=== PATIENT | male | born 1995 | race Caucasian/White ===

== ENCOUNTER 2019-06-01 19:50 | Emergency (ER) | payer OTHER ==
[2019-06-01 20:01] VITALS: RESP 18
--- NOTE | 2019-06-01 20:40 | XR ---
EXAMINATION TYPE: XR ankle complete LT DATE OF EXAM: 06/01/2019 COMPARISON: NONE HISTORY: Pain TECHNIQUE: 3 views of the left ankle are submitted for evaluation. FINDINGS: There is no evidence for fracture or dislocation. Ankle mortise is intact. Soft tissues are within normal limits. IMPRESSION: 1. No evidence for acute fracture.
--- NOTE | 2019-06-01 21:13 | ED ---
General Adult HPI - General Chief complaint: Extremity Injury, Lower Stated complaint: ankle injury Time Seen by Provider: 06/01/19 20:12 Source: patient, RN notes reviewed, old records reviewed Mode of arrival: ambulatory Limitations: no limitations - History of Present Illness Initial comments: 23-year-old male patient no pertinent past medical history presents ED chief complaint of left ankle pain. Patient reports that at his job he is on his feet for 10 hours today running back and forth for multiple days now. Patient reports that his Coumadin effect. The his left ankle becoming inflamed and swollen. Denies any inversion or eversion injury or any direct trauma. Patient reports that he has a mild amount of pain both at the medial and lateral aspect of his malleolus. Denies any foot pain. Denies any other complaints. Systemic: Pt denies fatigue, fever/chills, rash. Pt denies weakness, night sweats, weight loss. Neuro: Pt denies headache, visual disturbances, syncope or pre-syncope. HEENT: Pt denies ocular discharge or irritation, otalgia, rhinorrhea, pharyngitis or notable lymphadenopathy. Cardiopulmonary: Pt denies chest pain, SOB, heart palpitations, dyspnea on exertion. Abdominal/GI: Pt denies abdominal pain, n/v/d. : Pt denies dysuria, burning w/ urination, frequency/urgency. Denies new onset urinary or bowel incontinence. MSK: Pt denies loss of strength or function in extremities. Neuro: Pt denies new onset weakness, paresthesias. - Related Data Allergies Allergy/AdvReac Type Severity Reaction Status Date / Time No Known Allergies Allergy Verified 06/01/19 20:01 Review of Systems ROS Statement: Those systems with pertinent positive or pertinent negative responses have been documented in the HPI. ROS Other: All systems not noted in ROS Statement are negative. Past Medical History Past Medical History: No Reported History History of Any Multi-Drug Resistant Organisms: None Reported Past Surgical History: No Surgical Hx Reported Past Psychological History: ADD/ADHD, Depression Smoking Status: Current every day smoker Past Alcohol Use History: None Reported Past Drug Use History: None Reported General Exam - General Exam Comments Initial Comments: Constitutional: NAD, AOX3, Pt has pleasant affect. HEENT: NC/AT, trachea midline, neck supple, no lymphadenopathy. Posterior pharynx non erythematous, without exudates. External ears appear normal, without discharge. Mucous membranes moist. Eyes PERRLA, EOM intact. There is no scleral icterus. No pallor noted. Cardiopulmonary: RRR, no murmurs, rubs or gallops, no JVD noted. Lungs CTAB in anterior and posterior christopher. No peripheral edema. Abdominal exam: Abdomen soft and non-distended. Abdomen non-tender to palpation in all 4 quadrants. Bowel sounds active in LLQ. No hepatosplenomegaly. No ecchymosis Neuro: CN II-XII grossly intact. No nuchal rigidity. No raccon eyes, no bruce sign, no hemotympanum. No cervical spinal tenderness. MSK: Mild amount of swelling noted to medial and lateral aspect of malleolus. Proximal tibia/fibula tenderness. Distal pulses intact and equal. No skin changes. No posterior calf tenderness bilaterally, homans sign negative bilaterally. Posterior tibialis and radial pulse +2 bilaterally. Sensation intact in upper and lower extremities. Full active ROM in upper and lower extremities, 5/5 stregnth. Limitations: no limitations Course Vital Signs 06/01/19 19:57 Temperature 99.3 F Pulse Rate 98 Respiratory 18 Rate Blood Pressure 125/74 O2 Sat by Pulse 98 Oximetry Medical Decision Making - Medical Decision Making 23-year-old male patient presents to ED chief complaint left ankle injury. Patient reports that it is swollen and painful. He reports this is from running back and forth at his job many hours and his feet. Denies any acute injury. Patient vital signs are stable, afebrile. Physical exam displayed: Mild amount of swelling noted to medial and lateral aspect of malleolus. Proximal tibia/fibula tenderness. Distal pulses intact and equal. No skin changes. Plain film was negative. Patient discharged with outpatient primary care follow-up and given orthopedic consult symptoms persist. Case discussed with Dr. Mercado. Disposition Clinical Impression: Ankle sprain Disposition: HOME SELF-CARE Condition: Stable Instructions (If sedation given, give patient instructions): Ankle Sprain (ED) Additional Instructions: Follow up with primary care provider, follow up with orthopedic consult if symptoms persist. Return to ER if condition worsens in anyway. Is patient prescribed a controlled substance at d/c from ED?: No Referrals: None,Stated [Primary Care Provider] - 1-2 days Lloyd Aguilar MD [STAFF PHYSICIAN] - 1-2 days
--- NOTE | 2019-06-01 21:14 | ED ---
Medical Decision Making - Medical Decision Making 23-year-old male patient no pertinent past medical history presents ED chief complaint of left ankle pain. Patient reports that at his job he is on his feet for 10 hours today running back and forth for multiple days now. Patient reports that this cumulative effect. The his left ankle becoming inflamed and swollen. Denies any inversion or eversion injury or any direct trauma. Patient reports that he has a mild amount of pain both at the medial and lateral aspect of his malleolus. Denies any foot pain. Denies any other complaints. Physical exam: Medial and lateral aspect of left ankle very mildly tender to palpation. Disposition Clinical Impression: Ankle sprain Disposition: HOME SELF-CARE Condition: Stable Instructions (If sedation given, give patient instructions): Ankle Sprain (ED) Additional Instructions: Follow up with primary care provider, follow up with orthopedic consult if symptoms persist. Return to ER if condition worsens in anyway. Is patient prescribed a controlled substance at d/c from ED?: No Referrals: None,Stated [Primary Care Provider] - 1-2 days Lloyd Aguilar MD [STAFF PHYSICIAN] - 1-2 days
[2019-06-01 21:26] VITALS: BP 143/73; PULSE 86; TEMP 99
== END 2019-06-01 21:28 | disposition home or self-care (01) ==
LOC: EC 19:50
DX: S93.402A Sprain of unspecified ligament of left ankle, initial encounter (principal); F17.200 Nicotine dependence, unspecified, uncomplicated; X58.XXXA Exposure to other specified factors, initial encounter; Y93.02 Activity, running
CPT/HCPCS: 99284

== ENCOUNTER 2019-09-16 18:23 | Emergency (ER) | payer OTHER ==
[2019-09-16 18:33] VITALS: BP 113/89; PULSE 76; RESP 18; TEMP 99.1
[2019-09-16] MEDS ORDERED: ONDANSETRON ODT 4 MG TAB PO STA (18:48)
[2019-09-16] MEDS ORDERED: DIPHENOX-ATROP STARTER PACK 8 TAB BTL PO STA (18:49)
[2019-09-16] MEDS ORDERED: ONDANSETRON 4 MG ODT STARTER PACK 2 TAB BTL PO STA (18:49)
--- NOTE | 2019-09-16 18:57 | ED ---
General Adult HPI - General Chief complaint: Nausea/Vomiting/Diarrhea Stated complaint: vomiting/diarrhea Time Seen by Provider: 09/16/19 18:25 Source: patient, RN notes reviewed, old records reviewed Mode of arrival: ambulatory Limitations: no limitations - History of Present Illness Initial comments: This is a 24-year-old male who presents emergency Department states that at 4 AM he started vomiting and he vomited till noon today at which point time he no longer felt nauseated so he had vogt and eggs and toast. Patient denies any vomiting since. But still is nauseous. Patient also states since early this morning he's been having diarrhea and the diarrhea continues. Patient denies any abdominal pain. Patient denies any fever chills per patient and he coughed patient shortness of breath or difficulty breathing. Patient denies any dysuria hematuria urinary frequency per patient denies any back pain. Patient states he was unable to work tonight like a work note as well. - Related Data Allergies Allergy/AdvReac Type Severity Reaction Status Date / Time No Known Allergies Allergy Verified 09/16/19 18:34 Review of Systems ROS Statement: Those systems with pertinent positive or pertinent negative responses have been documented in the HPI. ROS Other: All systems not noted in ROS Statement are negative. Past Medical History Past Medical History: No Reported History History of Any Multi-Drug Resistant Organisms: None Reported Past Surgical History: Orthopedic Surgery Additional Past Surgical History / Comment(s): right knee, Past Psychological History: ADD/ADHD, Depression Smoking Status: Current every day smoker Past Alcohol Use History: None Reported Past Drug Use History: None Reported General Exam - General Exam Comments Initial Comments: GENERAL: Patient is well-developed and well-nourished. Patient is nontoxic and well- hydrated and is in mild distress. ENT: Neck is soft and supple. No significant lymphadenopathy is noted. Oropharynx is clear. Moist mucous membranes. Neck has full range of motion without eliciting any pain. EYES: The sclera were anicteric and conjunctiva were pink and moist. Extraocular m ovements were intact and pupils were equal round and reactive to light. Eyelids were unremarkable. PULMONARY: Unlabored respirations. Good breath sounds bilaterally. No audible rales rhonchi or wheezing was noted. CARDIOVASCULAR: There is a regular rate and rhythm without any murmurs gallops or rubs. ABDOMEN: Soft and nontender with normal bowel sounds. I was unable to get any air tenderness in the abdomen. SKIN: Skin is clear with no lesions or rashes and otherwise unremarkable. NEUROLOGIC: Patient is alert and oriented x3. Cranial nerves II through XII are grossly intact. Motor and sensory are also intact. Normal speech, volume and content. Symmetrical smile. MUSCULOSKELETAL: Normal extremities with adequate strength and full range of motion. No lower extremity swelling or edema. No calf tenderness. LYMPHATICS: No significant lymphadenopathy is noted PSYCHIATRIC: Normal psychiatric evaluation. Limitations: no limitations Course Vital Signs 09/16/19 18:25 Temperature 99.1 F Pulse Rate 76 Respiratory 18 Rate Blood Pressure 113/89 O2 Sat by Pulse 98 Oximetry Medical Decision Making - Medical Decision Making Patient was given Zofran and Lomotil emergency department. Patient had no tenderness and no other complaints. And all his only complaint currently is that he still has diarrhea. Patient has no pain anywhere. Disposition Clinical Impression: Gastroenteritis Disposition: HOME SELF-CARE Condition: Good Instructions (If sedation given, give patient instructions): Gastroenteritis (ED) Additional Instructions: Patient should take Zofran and Lomotil as prescribed. Patient should start with clear liquids and advance fluids slowly. Is patient prescribed a controlled substance at d/c from ED?: No Referrals: None,Stated [Primary Care Provider] - 1-2 days Time of Disposition: 18:56
[2019-09-16 19:08] LABS: Amorphous Sediment,Urine Many /hpf; Appearance,Urine Turbid (Clear); Bilirubin,Urine Negative (Negative); Blood,Urine Negative (Negative); Color,Urine Yellow; Glucose,Urine (UA) Negative (Negative); Ketones,Urine 2+ (Negative); Leukocyte Esterase,Urine Negative (Negative); Mucus,Urine Many /hpf; Nitrite,Urine Negative (Negative); PH, Urine 5.5 (5.0-8.0); Protein,Urine 1+ (Negative); Specific Gravity,Urine 1.044 (1.001-1.035); WBC,Urine 3 /hpf (0-5)
== END 2019-09-16 19:27 | disposition home or self-care (01) ==
LOC: EC 18:23
DX: K52.9 Noninfective gastroenteritis and colitis, unspecified (principal); F17.200 Nicotine dependence, unspecified, uncomplicated
CPT/HCPCS: 81001; 99284; S0119

== ENCOUNTER 2020-03-20 15:51 | Emergency (ER) | payer BC, OTHER ==
[2020-03-20 16:39] VITALS: BP 122/79; PULSE 72; RESP 18; TEMP 99.1
--- NOTE | 2020-03-20 17:55 | CT ---
EXAMINATION TYPE: CT brain jocelin wo con DATE OF EXAM: 03/20/2020 COMPARISON: None HISTORY: Head injury after syncopal episode CT DLP: 1238.7 mGycm Automated exposure control for dose reduction was used. Ventricles and sulci appear normal. There is no mass effect nor midline shift. There is no sign of in tracranial hemorrhage. The calvarium is intact. Cervical vertebra have normal alignment. Posterior elements are intact. Facet joints appear normal. T he skull base is intact. Prevertebral soft tissues appear normal. IMPRESSION: Normal CT scan of the cervical spine. Normal CT scan of the brain. Mild ethmoid sinusitis noted.
--- NOTE | 2020-03-20 17:57 | CT ---
EXAMINATION TYPE: CT facial bones wo con DATE OF EXAM: 03/20/2020 COMPARISON: None HISTORY: Head injury after syncopal episode CT DLP: 1238.7 mGycm Automated exposure control for dose reduction was used. Images were obtained from the bottom of the mandible to the top of the frontal sinuses without contra st. Mandibular ring is intact. Temporomandibular joints appear normal. Zygomatic arches appear normal. Na ismael bone is intact. The maxilla is intact. There is no evidence of a blowout fracture. There is no re tro-orbital mass. The orbital margins are intact. There is mild mucosal thickening in the ethmoid sin uses. Frontal sinuses appear normal. I see no bony destructive process. The globes are symmetric. IMPRESSION: Negative CT scan of the facial bones. No fracture. Mild ethmoid sinusitis.
--- NOTE | 2020-03-20 19:14 | ED ---
General Adult HPI - General Chief complaint: Fall Stated complaint: facial injury/dizziness Time Seen by Provider: 03/20/20 16:57 Source: patient, RN notes reviewed, old records reviewed Mode of arrival: ambulatory Limitations: no limitations - History of Present Illness Initial comments: 24-year-old male patient presents ED for evaluation of fall. Patient reports that he was walking tripped forward hitting his face on the wall. Patient reports he is having some left facial pain. Reports he might have had a brief consciousness. [place] a little dizzy afterwards. Denies any vomiting reportedly had a little bit of nausea. Denies any other acute complaints. Systemic: Pt denies fatigue, fever/chills, rash. Pt denies weakness, night swe ats, weight loss. Neuro: Pt denies headache, visual disturbances, syncope or pre-syncope. HEENT: Pt denies ocular discharge or irritation, otalgia, rhinorrhea, pharyngitis or notable lymphadenopathy. Cardiopulmonary: Pt denies chest pain, SOB, heart palpitations, dyspnea on exertion. Abdominal/GI: Pt denies abdominal pain, n/v/d. : Pt denies dysuria, burning w/ urination, frequency/urgency. Denies new onset urinary or bowel incontinence. MSK: Pt denies myalgia, loss of strength or function in extremities. Neuro: Pt denies new onset weakness, paresthesias. - Related Data Allergies Allergy/AdvReac Type Severity Reaction Status Date / Time No Known Allergies Allergy Verified 03/20/20 16:39 Review of Systems ROS Statement: Those systems with pertinent positive or pertinent negative responses have been documented in the HPI. ROS Other: All systems not noted in ROS Statement are negative. Past Medical History Past Medical History: No Reported History History of Any Multi-Drug Resistant Organisms: None Reported Past Surgical History: Orthopedic Surgery Additional Past Surgical History / Comment(s): right knee, Past Psychological History: ADD/ADHD, Depression Smoking Status: Current every day smoker Past Alcohol Use History: None Reported Past Drug Use History: None Reported General Exam - General Exam Comments Initial Comments: Constitutional: NAD, AOX3, Pt has pleasant affect. HEENT: NC/AT, trachea midline, neck supple, no lymphadenopathy. External ears appear normal, without discharge. Mucous membranes moist. Eyes PERRLA, EOM intact. There is no scleral icterus. No pallor noted. Cardiopulmonary: RRR, no murmurs, rubs or gallops, no JVD noted. Lungs CTAB in anterior and posterior christopher. No peripheral edema. Abdominal exam: Abdomen soft and non-distended. Abdomen non-tender to palpation in all 4 quadrants. Bowel sounds active in LLQ. No hepatosplenomegaly. No ecchymosis Neuro: CN II-XII intact. No nuchal rigidity. No raccon eyes, no bruce sign, no hemotympanum. No cervical spinal tenderness. MSK: No posterior calf tenderness bilaterally, homans sign negative bilaterally. Posterior tibialis and radial pulse +2 bilaterally. Sensation intact in upper and lower extremities. Full active ROM in upper and lower extremities, 5/5 stregnth. Limitations: no limitations Course Vital Signs 03/20/20 16:34 Temperature 99.1 F Pulse Rate 72 Respiratory 18 Rate Blood Pressure 122/79 O2 Sat by Pulse 99 Oximetry Medical Decision Making - Medical Decision Making 24-year-old male patient presents ED for evaluation of fall. Patient reports that he was walking tripped forward hitting his face on the wall. Patient reports he is having some left facial pain. Reports he might have had a brief consciousness. The dizzy afterwards. Denies any vomiting reportedly had a little bit of nausea. Denies any other acute complaints. Patient vital signs are stable, afebrile. Physical exam did not display acute pathology. CT brain and C-spine displayed mild ethmoid sinusitis. CT facial bones without contrast did not display any fracture. Patient is denying any symptoms of sinusitis. His feeling at baseline. Ambulatory without difficulty. Patient will be discharged outpatient PCP follow-up, return precautions, concussion clinic. Case discussed with Dr. Wu. Disposition Clinical Impression: Fall, Concussion Disposition: HOME SELF-CARE Condition: Stable Instructions (If sedation given, give patient instructions): Fall Prevention (ED), Concussion (ED) Additional Instructions: follow-up with primary care provider tomorrow. Follow up with concussion clinic. Return to ER if any worsening symptoms. [facility] Concussion clinic: Connect with a Concussion Specialist Request an appointment online or call us at . Is patient prescribed a controlled substance at d/c from ED?: No Referrals: None,Stated [Primary Care Provider] - 1-2 days Carolina Echevarria MD [REFERRING] - 1-2 days
== END 2020-03-20 19:28 | disposition home or self-care (01) ==
LOC: EC 15:51
DX: S06.0X9A Concussion with loss of consciousness of unspecified duration, initial encounter (principal); F17.200 Nicotine dependence, unspecified, uncomplicated; W01.198A Fall on same level from slipping, tripping and stumbling with subsequent striking against other object, initial encounter; Y93.01 Activity, walking, marching and hiking
CPT/HCPCS: 70450; 70486; 72125; 99284

== ENCOUNTER 2020-05-28 17:11 | Emergency (ER) | payer BC, OTHER ==
[2020-05-28] MEDS ORDERED: KETOROLAC 15 MG/ML 1 ML VIAL IM STA (17:40)
--- NOTE | 2020-05-28 17:43 | ED ---
General Adult HPI - General Chief complaint: Chest Pain Stated complaint: Chest pain Time Seen by Provider: 05/28/20 17:27 Source: patient, RN notes reviewed Mode of arrival: ambulatory Limitations: no limitations - History of Present Illness Initial comments: Patient is a pleasant 24-year-old male presenting to the emergency Department with chest discomfort. Onset of symptoms was around 3 hours ago while throwing carpet. Patient had his arms up over his head. Patient states carpet does not weigh hole at, only 5 or 10 pounds and patient has done this motion previously. Patient has discomfort the lower sternum. Discomfort is hard to describe. Patient is unclear how severe discomfort is. Discomfort does increase with deep breaths. Otherwise no dyspnea. No nausea or diaphoresis. Patient states he does have similar symptoms previously his entire lifebut usually does not last this long. No leg pain or leg swelling. Patient states fingertips on both his hands were tingly - Related Data Allergies Allergy/AdvReac Type Severity Reaction Status Date / Time No Known Allergies Allergy Verified 05/28/20 17:21 Review of Systems ROS Statement: Those systems with pertinent positive or pertinent negative responses have been documented in the HPI. ROS Other: All systems not noted in ROS Statement are negative. Constitutional: Denies: fever Eyes: Denies: eye pain ENT: Denies: ear pain Respiratory: Denies: cough, dyspnea Cardiovascular: Reports: as per HPI, chest pain Endocrine: Denies: fatigue Gastrointestinal: Denies: abdominal pain Genitourinary: Denies: dysuria Musculoskeletal: Denies: back pain Skin: Denies: rash Neurological: Denies: weakness Past Medical History Past Medical History: No Reported History Additional Past Medical History / Comment(s): irregular heart beat but states he never saw dr he just knows his heart rate was fast. History of Any Multi-Drug Resistant Organisms: None Reported Past Surgical History: Orthopedic Surgery Additional Past Surgical History / Comment(s): right knee, Past Psychological History: ADD/ADHD, Depression Smoking Status: Current every day smoker Past Alcohol Use History: None Reported Past Drug Use History: None Reported General Exam Limitations: no limitations General appearance: alert, in no apparent distress Head exam: Present: normocephalic Eye exam: Present: normal appearance Neck exam: Present: normal inspection Respiratory exam: Present: normal lung sounds bilaterally, chest wall tenderness (patient does have mild tenderness lower mid sternum) Cardiovascular Exam: Present: regular rate, normal rhythm Expanded Peripheral pulses: 2+: Radial (R), Radial (L), Dorsalis Pedis (R), Dorsalis Pedis (L) GI/Abdominal exam: Present: soft. Absent: tenderness Extremities exam: Present: normal inspection. Absent: pedal edema, calf tenderness Neurological exam: Present: alert Psychiatric exam: Present: normal affect, normal mood Skin exam: Present: normal color Course Vital Signs 05/28/20 05/28/20 17:17 18:03 Pulse Rate 80 Pulse Rate [ 65 Line Pilot ] Respiratory 20 Rate Blood Pressure 120/77 O2 Sat by Pulse 98 Oximetry EKG Findings - EKG Comments: EKG Findings:: normal sinus rhythm 69. UT 16. QRS 84. QT 374. QTC 400. Normal axis. Normal QRS. No acute ST change. Medical Decision Making - Medical Decision Making patient perc negative. Patient reevaluated and symptom-free. Patient updated on results and need for follow-up. - Radiology Data Radiology results: image reviewed (chest x-ray shows no acute) Disposition Clinical Impression: Chest pain Disposition: HOME SELF-CARE Condition: Stable Instructions (If sedation given, give patient instructions): Chest Wall Pain (ED) Additional Instructions: please follow-up with primary care physician in the next day or 2 for recheck, number provided. Return for changing or worsening symptoms, difficulty breathing, or any other concerns. Is patient prescribed a controlled substance at d/c from ED?: No Referrals: Erick Gutierrez [STAFF PHYSICIAN] - 1-2 days Sai Bernard MD [REFERRING] - 1-2 days Time of Disposition: 18:49
--- NOTE | 2020-05-28 18:30 | XR ---
EXAMINATION TYPE: XR chest 2V DATE OF EXAM: 05/28/2020 COMPARISON: NONE HISTORY: Chest pain TECHNIQUE: FINDINGS: Heart and mediastinum are normal. Lungs are clear. Diaphragm is normal. Bony thorax appears normal. IMPRESSION: Normal chest.
[2020-05-28 18:58] VITALS: BP 118/77; PULSE 67; RESP 16
== END 2020-05-28 18:58 | disposition home or self-care (01) ==
LOC: EC 17:11
DX: R07.89 Other chest pain (principal); F17.200 Nicotine dependence, unspecified, uncomplicated; X50.0XXA Overexertion from strenuous movement or load, initial encounter; Y92.69 Other specified industrial and construction area as the place of occurrence of the external cause; Y99.0 Civilian activity done for income or pay
CPT/HCPCS: 93005; 71046; 99285; 96372; J1885

== ENCOUNTER 2020-11-28 08:12 | Emergency (ER) | payer BC, OTHER ==
[2020-11-28 08:17] VITALS: BP 132/93; PULSE 91; RESP 18; TEMP 98
[2020-11-28] MEDS ORDERED: BACITRACIN OINT 1 EACH PACKET TOPICAL STA (08:44)
[2020-11-28] MEDS ORDERED: CEPHALEXIN 500MG STARTER PACK 4 CAP BTL PO STA (08:44)
--- NOTE | 2020-11-28 09:10 | ED ---
General Adult HPI - General Chief complaint: Wound/Laceration Stated complaint: possible arm infection Time Seen by Provider: 11/28/20 08:19 Source: patient Mode of arrival: ambulatory Limitations: no limitations - History of Present Illness Initial comments: 25-year-old female without any significant past medical history presents for possible infection. Patient states he scraped his left arm on a light switch last week. States this rate started to look infected. States it is spreading red. States it was draining green fluid. Patient denies fevers.Patient has no other complaints at this time including shortness of breath, chest pain, abdominal pain, nausea or vomiting, headache, or visual changes. - Related Data Previous Rx's Medication Instructions Recorded Bacitracin/Polymyx Oint 1 applic TOPICAL TID #5 gm 11/28/20 [Polysporin] Cephalexin [Keflex] 500 mg PO Q6HR 7 Days #28 cap 11/28/20 Allergies Allergy/AdvReac Type Severity Reaction Status Date / Time No Known Allergies Allergy Verified 11/28/20 08:50 Review of Systems ROS Statement: Those systems with pertinent positive or pertinent negative responses have been documented in the HPI. ROS Other: All systems not noted in ROS Statement are negative. Past Medical History Past Medical History: No Reported History Additional Past Medical History / Comment(s): irregular heart beat but states he never saw dr he just knows his heart rate was fast. History of Any Multi-Drug Resistant Organisms: None Reported Past Surgical History: Orthopedic Surgery Additional Past Surgical History / Comment(s): right knee, Past Psychological History: ADD/ADHD, Depression Smoking Status: Current every day smoker Past Alcohol Use History: None Reported Past Drug Use History: None Reported General Exam Limitations: no limitations General appearance: alert, in no apparent distress Head exam: Present: atraumatic, normocephalic, normal inspection Eye exam: Present: normal appearance, PERRL, EOMI. Absent: scleral icterus, conjunctival injection, periorbital swelling ENT exam: Present: normal exam Neck exam: Present: normal inspection Respiratory exam: Present: normal lung sounds bilaterally. Absent: respiratory distress, wheezes Cardiovascular Exam: Present: regular rate, normal rhythm, normal heart sounds Extremities exam: Present: other (Minor abrasion noted to the left upper arm. There is minimal surrounding erythema.) Course Vital Signs 11/28/20 08:14 Temperature 98 F Pulse Rate 91 Respiratory 18 Rate Blood Pressure 132/93 O2 Sat by Pulse 97 Oximetry Medical Decision Making - Medical Decision Making Vitals are stable. Patient is afebrile. There is small abrasion noted to the left upper arm. Minimal erythema could be an early cellulitis. Patient will be treated accordingly. He'll follow up with his doctor. Discussed returning for any worsening symptoms. Disposition Clinical Impression: Cellulitis Disposition: HOME SELF-CARE Condition: Good Instructions (If sedation given, give patient instructions): Cellulitis (ED) Additional Instructions: Please use medications as directed. Follow-up with your doctor. Return to the emergency room for any worsening symptoms. Prescriptions: Cephalexin [Keflex] 500 mg PO Q6HR 7 Days #28 cap Bacitracin/Polymyx Oint [Polysporin] 1 applic TOPICAL TID #5 gm Is patient prescribed a controlled substance at d/c from ED?: No Referrals: Jeronimo Fry MD [STAFF PHYSICIAN] - 1-2 days Time of Disposition: 09:08
== END 2020-11-28 09:25 | disposition home or self-care (01) ==
LOC: EC 08:12
DX: L03.114 Cellulitis of left upper limb (principal); F17.200 Nicotine dependence, unspecified, uncomplicated; F32.9 Major depressive disorder, single episode, unspecified
CPT/HCPCS: 96372; 99283

== ENCOUNTER 2021-04-03 10:10 | Emergency (ER) | payer OTHER ==
[2021-04-03 10:30] VITALS: BP 136/78; PULSE 87; RESP 18; TEMP 98.3
--- NOTE | 2021-04-03 12:03 | ED ---
Lower Extremity Injury HPI - General Chief Complaint: Extremity Injury, Lower Stated Complaint: Injury-Left Foot Time Seen by Provider: 04/03/21 10:47 Source: patient, RN notes reviewed Mode of arrival: wheelchair Limitations: no limitations - History of Present Illness Initial Comments: This a 25-year-old male presents emergency Department with chief complaint of left ankle pain, foot pain. Patient states been issues in which she had an old injury injury. Patient states he rolled his ankle. Patient complains of left lateral ankle pain, left foot first digit numbness. He states it comes and goes worse with standing all day using have some circulation issues but has not seen her primary care physician or orthopedic physician patient denies any history of diabetes no other complaints. - Related Data Previous Rx's Medication Instructions Recorded Bacitracin/Polymyx Oint 1 applic TOPICAL TID #5 gm 11/28/20 [Polysporin Oint] Cephalexin [Keflex] 500 mg PO Q6HR 7 Days #28 cap 11/28/20 Allergies Allergy/AdvReac Type Severity Reaction Status Date / Time No Known Allergies Allergy Verified 04/03/21 10:30 Review of Systems ROS Statement: Those systems with pertinent positive or pertinent negative responses have been documented in the HPI. ROS Other: All systems not noted in ROS Statement are negative. Past Medical History Past Medical History: No Reported History Additional Past Medical History / Comment(s): irregular heart beat but states he never saw dr he just knows his heart rate was fast. History of Any Multi-Drug Resistant Organisms: None Reported Past Surgical History: Orthopedic Surgery Additional Past Surgical History / Comment(s): right knee, Past Psychological History: ADD/ADHD, Depression Smoking Status: Current every day smoker Past Alcohol Use History: None Reported Past Drug Use History: None Reported General Exam Limitations: no limitations General appearance: alert, in no apparent distress Head exam: Present: atraumatic, normocephalic, normal inspection Respiratory exam: Present: normal lung sounds bilaterally. Absent: respiratory distress, wheezes, rales, rhonchi, stridor Cardiovascular Exam: Present: regular rate, normal rhythm, normal heart sounds. Absent: systolic murmur, diastolic murmur, rubs, gallop, clicks Extremities exam: Present: other (Left foot there is tenderness to lateral proximal foot, lateral malleolus region, neurovascular intact with equal pedal pulses. Normal color and warmth) Course Vital Signs 04/03/21 10:25 Temperature 98.3 F Pulse Rate 87 Respiratory 18 Rate Blood Pressure 136/78 O2 Sat by Pulse 100 Oximetry Medical Decision Making - Medical Decision Making X-rays negative for acute fracture. Patient will be discharged in stable condition patient is a left ankle sprain complaints of paresthesias of his told to follow-up with orthopedics return parameters were discussed. Disposition Clinical Impression: Left ankle sprain, Paresthesia of foot Disposition: HOME SELF-CARE Condition: Stable Instructions (If sedation given, give patient instructions): Ankle Sprain (ED) Additional Instructions: Please return to the Emergency Department if symptoms worsen or any other concerns. Is patient prescribed a controlled substance at d/c from ED?: No Referrals: None,Stated [Primary Care Provider] - 1-2 days Luis A Omer MD [Medical Doctor] - 1-2 days Time of Disposition: 12:37
--- NOTE | 2021-04-03 12:31 | XR ---
EXAMINATION TYPE: XR foot complete LT DATE OF EXAM: 04/03/2021 CLINICAL HISTORY: pain TECHNIQUE: Frontal, lateral and oblique images of the left foot are obtained. COMPARISON: None. FINDINGS: There is no acute fracture/dislocation evident. The joint spaces appear within normal nur its. The overlying soft tissue appears unremarkable. IMPRESSION: There is no acute fracture or dislocation. ICD 10 NO FRACTURE, INITIAL EVALUATION
--- NOTE | 2021-04-03 12:31 | XR ---
EXAMINATION TYPE: XR ankle complete LT DATE OF EXAM: 04/03/2021 COMPARISON: NONE HISTORY: Pain TECHNIQUE: 3 views of the left ankle are submitted for evaluation. FINDINGS: There is no evidence for fracture or dislocation. Ankle mortise is intact. Soft tissues are within normal limits. IMPRESSION: 1. No evidence for acute fracture.
== END 2021-04-03 13:37 | disposition home or self-care (01) ==
LOC: EC 10:10
DX: S93.402A Sprain of unspecified ligament of left ankle, initial encounter (principal); F32.9 Major depressive disorder, single episode, unspecified; F90.9 Attention-deficit hyperactivity disorder, unspecified type; F17.200 Nicotine dependence, unspecified, uncomplicated; X50.1XXA Overexertion from prolonged static or awkward postures, initial encounter
CPT/HCPCS: 99283

== ENCOUNTER → 2021-04-05 | Outpatient (CLI) | payer OTHER ==
--- NOTE | 2021-04-05 19:46 | XR ---
EXAMINATION TYPE: XR lumbar spine 2 or 3V DATE OF EXAM: 04/05/2021 Comparison: None Clinical History: 25-year-old male M54.32 Findings: Vertebral body heights are preserved and alignment is maintained. Disc interspaces are also preserved . There appears to be a right L5 hemisacralization with possible early degenerative change at the ass imilation joint. Impression: 1. 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 Note that this finding can contribute to accelerated degenerative change at the level above, L4-L5. 2. No vertebral compression collapse or malalignment.
== END | disposition home or self-care (01) ==
LOC: RADXRMAIN 12:57
PROVIDERS: ATTEND Family Medicine
DX: M51.36 Other intervertebral disc degeneration, lumbar region (principal)
CPT/HCPCS: 72100

== ENCOUNTER 2021-06-27 15:06 | Emergency (ER) | payer OTHER ==
[2021-06-27 16:34] VITALS: TEMP 98
[2021-06-27] MEDS ORDERED: KETOROLAC 15 MG/ML 1 ML VIAL IM STA (17:30)
--- NOTE | 2021-06-27 17:35 | ED ---
General Adult HPI - General Chief complaint: Back Pain/Injury Stated complaint: Back pain Time Seen by Provider: 06/27/21 17:12 Source: patient Mode of arrival: ambulatory Limitations: no limitations - History of Present Illness Initial comments: 25-year-old male presents to the emergency room for a gentleman of lower back pain for several months. 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 States he has had low back pain for several months from this. States over the weekend his pain started to worsen. He saw his doctor gave him a muscle relaxer muscle is spasming. States it did seem to help with the spasming but he is still having low back pain. States movement seems to worsen the pain and position such as crouching also worsen the pain. Patient states that lifting heavy objects does not help either. Patient denies bladder or bowel changes, saddle anesthesia, weakness of the legs, fevers or chills, or radiating pain down the legs.Patient has no other complaints at this time including shortness of breath, chest pain, abdominal pain, nausea or vomiting, headache, or visual changes. - Related Data Previous Rx's Medication Instructions Recorded Bacitracin/Polymyx Oint 1 applic TOPICAL TID #5 gm 11/28/20 [Polysporin Oint] Cephalexin [Keflex] 500 mg PO Q6HR 7 Days #28 cap 11/28/20 Allergies Allergy/AdvReac Type Severity Reaction Status Date / Time No Known Allergies Allergy Verified 06/27/21 16:30 Review of Systems ROS Statement: Those systems with pertinent positive or pertinent negative responses have been documented in the HPI. ROS Other: All systems not noted in ROS Statement are negative. Past Medical History Past Medical History: No Reported History Additional Past Medical History / Comment(s): irregular heart beat but states he never saw dr he just knows his heart rate was fast. History of Any Multi-Drug Resistant Organisms: None Reported Past Surgical History: Orthopedic Surgery Additional Past Surgical History / Comment(s): right knee scope Past Psychological History: ADD/ADHD, Depression Smoking Status: Vaper Past Alcohol Use History: None Reported Past Drug Use History: None Reported General Exam Limitations: no limitations General appearance: alert, in no apparent distress Head exam: Present: atraumatic Eye exam: Present: normal appearance, PERRL, EOMI. Absent: scleral icterus, conjunctival injection ENT exam: Present: normal exam, mucous membranes moist Neck exam: Present: normal inspection, full ROM. Absent: tenderness Respiratory exam: Present: normal lung sounds bilaterally. Absent: respiratory distress, wheezes Cardiovascular Exam: Present: regular rate, normal rhythm, normal heart sounds GI/Abdominal exam: Present: soft, normal bowel sounds. Absent: distended, tenderness Back exam: Present: vertebral tenderness (Upper lumbar tenderness). Absent: CVA tenderness (R), CVA tenderness (L) Course Vital Signs 06/27/21 16:31 Temperature 98 F Pulse Rate 74 Respiratory 18 Rate Blood Pressure 118/77 O2 Sat by Pulse 100 Oximetry Medical Decision Making - Medical Decision Making Patient has upper lumbar pain. Back pain is not thoracic in nature. Pain is reproducible to palpation and worsens with movement. Musculoskeletal in nature. X-rays obtained. No acute process. No evidence of vertebral height loss. Patient was given Toradol. At this time patient can be discharged home to follow-up with orthopedics. Will return here for any worsening symptoms. Disposition Clinical Impression: Mechanical back pain Disposition: HOME SELF-CARE Condition: Good Instructions (If sedation given, give patient instructions): Acute Low Back Pain (ED) Additional Instructions: Please take Motrin and Tylenol for pain. Take muscle relaxer as directed. Follow-up with your doctor. Return to the emergency room for any worsening symptoms. Is patient prescribed a controlled substance at d/c from ED?: No Referrals: Erick Gutierrez [Primary Care Provider] - 1-2 days Time of Disposition: 18:21
--- NOTE | 2021-06-27 18:09 | XR ---
EXAMINATION TYPE: XR lumbar spine 2 or 3V DATE OF EXAM: 06/27/2021 5:42 PM INDICATION: Patient age:Male; 25 years old; Reason for study: pain; COMPARISON: None TECHNIQUE: The lumbar spine was examined in 2 views. FINDINGS: No evidence of any acute osseous pathology. No evidence of loss of vertebral body height i s seen. There is normal alignment of the lumbar vertebral bodies. IMPRESSION: No acute process.
[2021-06-27 18:45] VITALS: BP 115/77; PULSE 95; RESP 16
== END 2021-06-27 18:44 | disposition home or self-care (01) ==
LOC: EC 15:06
DX: M54.50 Low back pain, unspecified (principal); F17.290 Nicotine dependence, other tobacco product, uncomplicated
CPT/HCPCS: 72100; 99283; 96372; J1885

== ENCOUNTER → 2021-06-28 | Outpatient (CLI) | payer OTHER ==
--- NOTE | 2021-06-29 10:12 | XR ---
EXAMINATION TYPE: XR thoracic spine 4 views complete DATE OF EXAM: 06/28/2021 Comparison: None Clinical History: 25-year-old male M54.6 Thoracic Back Pain Findings: 12 rib bearing thoracic vertebral bodies. All pedicles are visualized. Vertebral body heights are pre served and alignment maintained. Minimal anterior endplate spondylosis lower thoracic spine. Impression: Minimal anterior endplate spondylosis lower thoracic spine. No vertebral compression collapse or jayesh lignment.
== END | disposition home or self-care (01) ==
LOC: RADXRMAIN 16:35
PROVIDERS: ATTEND Family Medicine
DX: M47.814 Spondylosis without myelopathy or radiculopathy, thoracic region (principal)
CPT/HCPCS: 72072

== ENCOUNTER 2021-09-12 02:36 | Emergency (ER) | payer OTHER ==
[2021-09-12 02:45] VITALS: BP 137/85; PULSE 71; RESP 18; TEMP 97.9
[2021-09-12] MEDS ORDERED: DIPHENOX-ATROP STARTER PACK 8 TAB BTL PO STA (03:01)
[2021-09-12] MEDS ORDERED: IBUPROFEN 600 MG STARTER PACK 4 TAB BTL PO STA (03:01)
[2021-09-12] MEDS ORDERED: ONDANSETRON 4 MG ODT STARTER PACK 2 TAB BTL PO STA (03:01)
--- NOTE | 2021-09-12 03:09 | ED ---
Nausea/Vomiting/Diarrhea HPI - General Chief complaint: Nausea/Vomiting/Diarrhea Stated complaint: vomiting diaheah Time Seen by Provider: 09/12/21 02:51 Source: patient, RN notes reviewed, old records reviewed Mode of arrival: ambulatory Limitations: no limitations - History of Present Illness Initial comments: This is a 18-year-old male DF for evaluation patient Dese for evaluation multiple vomiting multiple episodes of diarrhea. No blood. No fevers. Mild up and down abdominal pain cramping. No fevers. Symptoms began after dinner tonight. did not have any similar symptoms. Patient has otherwise no recent travel history or sick contacts MD complaint: nausea, vomiting, diarrhea, abdominal pain -: hour(s) Description of Vomiting: food contents, watery Description of Diarrhea: water, mucous Associated Abdominal Pain: Yes Location: diffuse Radiation: none Severity: mild Severity scale (1-10): 3 Quality: cramping, aching Consistency: constant Improves with: none Worsens with: none Context: possible food poisoning Associated Symptoms: loss of appetite, nausea/vomiting - Related Data Previous Rx's Medication Instructions Recorded Bacitracin/Polymyx Oint 1 applic TOPICAL TID #5 gm 11/28/20 [Polysporin Oint] Cephalexin [Keflex] 500 mg PO Q6HR 7 Days #28 cap 11/28/20 Acetaminophen [Tylenol] 500 mg PO Q4-6H PRN #20 tab 06/27/21 Ibuprofen [Motrin] 600 mg PO Q6HR PRN #20 tab 06/27/21 Lidocaine 5% Patch [Lidoderm 5% 1 patch TOPICAL DAILY PRN 5 Days 06/27/21 Patch] #5 patch Allergies Allergy/AdvReac Type Severity Reaction Status Date / Time No Known Allergies Allergy Verified 09/12/21 02:45 Review of Systems ROS Statement: Those systems with pertinent positive or pertinent negative responses have been documented in the HPI. ROS Other: All systems not noted in ROS Statement are negative. Past Medical History Past Medical History: No Reported History Additional Past Medical History / Comment(s): irregular heart beat but states he never saw dr he just knows his heart rate was fast. History of Any Multi-Drug Resistant Organisms: None Reported Past Surgical History: Orthopedic Surgery Additional Past Surgical History / Comment(s): right knee scope Past Psychological History: ADD/ADHD, Depression Smoking Status: Vaper Past Alcohol Use History: None Reported Past Drug Use History: None Reported General Exam General appearance: alert, in no apparent distress Head exam: Present: atraumatic, normocephalic, normal inspection Eye exam: Present: normal appearance, PERRL, EOMI. Absent: scleral icterus, conjunctival injection, periorbital swelling ENT exam: Present: normal exam, mucous membranes moist Neck exam: Present: normal inspection. Absent: tenderness, meningismus, lymphadenopathy Respiratory exam: Present: normal lung sounds bilaterally. Absent: respiratory distress, wheezes, rales, rhonchi, stridor Cardiovascular Exam: Present: regular rate, normal rhythm, normal heart sounds. Absent: systolic murmur, diastolic murmur, rubs, gallop, clicks GI/Abdominal exam: Present: soft, normal bowel sounds. Absent: distended, tenderness, guarding, rebound, rigid Extremities exam: Present: normal inspection, full ROM, normal capillary refill. Absent: tenderness, pedal edema, joint swelling, calf tenderness Back exam: Present: normal inspection Neurological exam: Present: alert, oriented X3, CN II-XII intact Psychiatric exam: Present: normal affect, normal mood Skin exam: Present: warm, dry, intact, normal color. Absent: rash Course Vital Signs 09/12/21 02:40 Temperature 97.9 F Pulse Rate 71 Respiratory 18 Rate Blood Pressure 137/85 O2 Sat by Pulse 98 Oximetry - Reevaluation(s) Reevaluation #1: 09/12/21 03:08 Medical record is reviewed Reevaluation #2: 09/12/21 03:08 Patient not having any acute active vomiting Reevaluation #3: 09/12/21 03:08 Patient informed of plan and questions are answered Medical Decision Making - Medical Decision Making 26 male to the emergency department. Patient presents today for evaluation of nausea vomiting and diarrhea multiple episodes of the above. Patient given symptomatic therapy can be discharged home Disposition Clinical Impression: Food poisoning, Gastroenteritis Disposition: HOME SELF-CARE Condition: Good Instructions (If sedation given, give patient instructions): Acute Nausea and Vomiting (ED), Acute Diarrhea (ED) Is patient prescribed a controlled substance at d/c from ED?: No Referrals: Erick Gutierrez [Primary Care Provider] - 1-2 days
== END 2021-09-12 03:31 | disposition home or self-care (01) ==
LOC: EC 02:36
DX: K52.9 Noninfective gastroenteritis and colitis, unspecified (principal); A05.9 Bacterial foodborne intoxication, unspecified; F17.290 Nicotine dependence, other tobacco product, uncomplicated
CPT/HCPCS: 99283; S0119

== ENCOUNTER 2021-12-17 21:15 | Emergency (ER) | payer OTHER ==
[2021-12-17 21:29] VITALS: BP 104/60; PULSE 119; RESP 20; TEMP 100.9
[2021-12-17] MEDS ORDERED: IBUPROFEN 800 MG TAB PO STA (21:33)
[2021-12-17] MEDS ORDERED: ACETAMINOPHEN TAB 500 MG TAB PO STA (21:33)
[2021-12-17] MEDS ORDERED: ONDANSETRON 4 MG TAB PO STA (21:33)
--- NOTE | 2021-12-17 21:34 | ED ---
Fever HPI - General Chief Complaint: Nausea/Vomiting/Diarrhea Stated Complaint: Fever/Abd pain/headache Time Seen by Provider: 12/17/21 21:33 Source: patient, RN notes reviewed, old records reviewed Mode of arrival: ambulatory Limitations: no limitations - History of Present Illness Initial Comments: This is a 26-year-old male to the emergency department with multiple complaints fever headache nausea belly pain. Body aches and pains. States both to family members also have similar complaints currently. No significant medical history no travel history no known significant sick contacts. No modifying factors for symptoms MD Complaint: fever, malaise, weakness, other (Headache and generalized aches and pains) -: hour(s) Temperature Source: subjective Context: multiple patients with similar symptoms Associated Symptoms: chills, myalgias, headache, cough, abdominal pain, nausea Treatments Prior to Arrival: none - Related Data Previous Rx's Medication Instructions Recorded Bacitracin/Polymyx Oint 1 applic TOPICAL TID #5 gm 11/28/20 [Polysporin Oint] Cephalexin [Keflex] 500 mg PO Q6HR 7 Days #28 cap 11/28/20 Acetaminophen [Tylenol] 500 mg PO Q4-6H PRN #20 tab 06/27/21 Ibuprofen [Motrin] 600 mg PO Q6HR PRN #20 tab 06/27/21 Lidocaine 5% Patch [Lidoderm 5% 1 patch TOPICAL DAILY PRN 5 Days 06/27/21 Patch] #5 patch Allergies Allergy/AdvReac Type Severity Reaction Status Date / Time No Known Allergies Allergy Verified 12/17/21 21:29 Review of Systems ROS Statement: Those systems with pertinent positive or pertinent negative responses have been documented in the HPI. ROS Other: All systems not noted in ROS Statement are negative. Past Medical History Past Medical History: No Reported History Additional Past Medical History / Comment(s): irregular heart beat but states he never saw dr he just knows his heart rate was fast. History of Any Multi-Drug Resistant Organisms: None Reported Past Surgical History: Orthopedic Surgery Additional Past Surgical History / Comment(s): right knee scope Past Psychological History: ADD/ADHD, Depression Smoking Status: Vaper Past Alcohol Use History: None Reported Past Drug Use History: None Reported General Exam Limitations: no limitations General appearance: alert, in no apparent distress Head exam: Present: atraumatic, normocephalic, normal inspection Eye exam: Present: normal appearance, PERRL, EOMI. Absent: scleral icterus, conjunctival injection, periorbital swelling ENT exam: Present: normal exam, mucous membranes moist Neck exam: Present: normal inspection. Absent: tenderness, meningismus, lymphadenopathy Respiratory exam: Present: normal lung sounds bilaterally. Absent: respiratory distress, wheezes, rales, rhonchi, stridor Cardiovascular Exam: Present: regular rate, normal rhythm, normal heart sounds. Absent: systolic murmur, diastolic murmur, rubs, gallop, clicks GI/Abdominal exam: Present: soft, normal bowel sounds. Absent: distended, tenderness, guarding, rebound, rigid Extremities exam: Present: normal inspection, full ROM, normal capillary refill. Absent: tenderness, pedal edema, joint swelling, calf tenderness Back exam: Present: normal inspection Neurological exam: Present: alert, oriented X3, CN II-XII intact Psychiatric exam: Present: normal affect, normal mood Skin exam: Present: warm, dry, intact, normal color. Absent: rash Course Vital Signs 12/17/21 21:25 Temperature 100.9 F H Pulse Rate 119 H Respiratory 20 Rate Blood Pressure 104/60 O2 Sat by Pulse 97 Oximetry - Reevaluation(s) Reevaluation #1: 12/17/21 22:39 Medical record is reviewed Reevaluation #2: 12/17/21 23:39 Patient very irritable here in the emergency department, informed of positive coronavirus diagnosis Reevaluation #3: 12/17/21 23:39 Patient's fevers improved no active nausea vomiting Medical Decision Making - Medical Decision Making 26 male to the ER today for evaluation. Patient presesnts today for evaluation of fever nausea abdominal pain positive for coronavirus patient can be discharged home - Lab Data Lab Results 12/17/21 12/17/21 Range/Units 22:22 22:22 Coronavirus (PCR) Detected A (Not Detectd) Influenza Type A RNA Not Detected (Not Detectd) Influenza Type B (PCR) Not Detected (Not Detectd) Disposition Clinical Impression: Dehydration, Coronavirus infection, Fever Disposition: HOME SELF-CARE Condition: Good Instructions (If sedation given, give patient instructions): Coronavirus Disease 2019 (COVID-19) Is patient prescribed a controlled substance at d/c from ED?: No Referrals: Erick Gutierrez [Primary Care Provider] - 1-2 days
== END 2021-12-18 00:09 | disposition home or self-care (01) ==
LOC: EC 21:15
DX: U07.1 COVID-19 (principal); E86.0 Dehydration; F17.209 Nicotine dependence, unspecified, with unspecified nicotine-induced disorders
CPT/HCPCS: 87502; 87635

== ENCOUNTER 2022-11-26 16:41 | Emergency (ER) | payer OTHER ==
[2022-11-26 17:06] VITALS: BP 128/85; PULSE 76; RESP 20; TEMP 98.2
--- NOTE | 2022-11-26 18:35 | ED ---
General Adult HPI - General Source: patient Mode of arrival: ambulatory Limitations: no limitations <Hayley Florez - Last Filed: 11/26/22 18:34> - General Source: patient Mode of arrival: ambulatory Limitations: no limitations - History of Present Illness MD Complaint: Abdominal pain <Yun Maldonado - Last Filed: 11/26/22 23:57> - General Chief complaint: Nausea/Vomiting/Diarrhea Stated complaint: Stomach Pain Time Seen by Provider: 11/26/22 18:34 - History of Present Illness Initial comments: 27-year-old male with no significant past medical history is complaining of worsening right upper quadrant pain. Admits to associated symptoms of nausea and vomiting (Hayley Florez) When I went to evaluate the patient, he states that he has a known history of gallstones. States that he is now having symptoms every day, in terms of nausea whenever he eats and increasing right upper quadrant pain. He has been trying to get in with a general surgeon, but states that he cannot find any local offices who accept his insurance. Denies any fevers, chills, diarrhea or constipation. However, he states that each day has been getting increasingly difficult to manage due to his symptoms and he is having difficulty with being able to eat anything despite having small low fat meals. Denies any fevers, chills, sore throat, cough, dyspnea, chest pain, palpitations, diarrhea, back pain, or headaches. (Yun Maldonado) - Related Data Previous Rx's Medication Instructions Recorded Bacitracin/Polymyx Oint 1 applic TOPICAL TID #5 gm 11/28/20 [Polysporin Oint] Cephalexin [Keflex] 500 mg PO Q6HR 7 Days #28 cap 11/28/20 Acetaminophen [Tylenol] 500 mg PO Q4-6H PRN #20 tab 06/27/21 Ibuprofen [Motrin] 600 mg PO Q6HR PRN #20 tab 06/27/21 Lidocaine 5% Patch [Lidoderm 5% 1 patch TOPICAL DAILY PRN 5 Days 06/27/21 Patch] #5 patch Allergies Allergy/AdvReac Type Severity Reaction Status Date / Time No Known Allergies Allergy Verified 11/26/22 17:07 Review of Systems ROS Other: All systems not noted in ROS Statement are negative. <Hayley Florez - Last Filed: 11/26/22 18:34> ROS Other: All systems not noted in ROS Statement are negative. <Yun Maldonado - Last Filed: 11/26/22 23:57> ROS Statement: Those systems with pertinent positive or pertinent negative responses have been documented in the HPI. Past Medical History Past Medical History: No Reported History Additional Past Medical History / Comment(s): irregular heart beat but states he never saw dr he just knows his heart rate was fast. History of Any Multi-Drug Resistant Organisms: None Reported Past Surgical History: Orthopedic Surgery Additional Past Surgical History / Comment(s): right knee scope Past Psychological History: ADD/ADHD, Depression Smoking Status: Vaper Past Alcohol Use History: None Reported Past Drug Use History: None Reported <Hayley Florez - Last Filed: 11/26/22 18:34> General Exam Limitations: no limitations <Hayley Florez - Last Filed: 11/26/22 18:34> Limitations: no limitations General appearance: alert, in no apparent distress Head exam: Present: atraumatic, normocephalic, normal inspection Respiratory exam: Present: normal lung sounds bilaterally. Absent: respiratory distress, wheezes, rales, rhonchi, stridor Cardiovascular Exam: Present: regular rate, normal rhythm, normal heart sounds. Absent: systolic murmur, diastolic murmur, rubs, gallop, clicks GI/Abdominal exam: Present: soft, tenderness (RUQ), normal bowel sounds. Absent: distended Neurological exam: Present: alert, oriented X3, CN II-XII intact Psychiatric exam: Present: normal affect, normal mood Skin exam: Present: warm, dry, intact, normal color. Absent: rash <Yun Maldonado - Last Filed: 11/26/22 23:57> - General Exam Comments Initial Comments: Visual Physical Exam Vital signs reviewed General: Well-appearing, nontoxic, no acute distress. Head: Normocephalic, atraumatic Eyes: PERRLA, EOMI ENT: Airway patent Chest: Nonlabored breathing Skin: No visual rash, normal skin tone Neuro: Alert and oriented 3 Musculoskeletal: No gross abnormalities (Hayley Florez) Course Vital Signs 11/26/22 17:03 Temperature 98.2 F Pulse Rate 76 Respiratory 20 Rate Blood Pressure 128/85 O2 Sat by Pulse 98 Oximetry Medical Decision Making - Lab Data Result diagrams: 11/26/22 20:37 11/26/22 20:37 - Radiology Data Radiology results: report reviewed, image reviewed <Yun Maldonado - Last Filed: 11/26/22 23:57> - Medical Decision Making This is a 27-year-old male who presents to the emergency department for right upper quadrant pain. Was pt. sent in by a medical professional or institution? @ -No Did you speak to anyone other than the patient for history? @ -No Did you review nursing and triage notes? @ -Yes, and I agree, it is accurate with regards to the patient's symptoms. Were old charts reviewed? @ -No Differential Diagnosis? @ -Differential Abdominal Pain Men: Appendicitis, cholecystitis, diverticulosis, ischemic bowel, pancreatitis, hepatitis, UTI, gastroenteritis, AAA, incarcerated hernia, bowel obstruction, constipation, inflammatory bowel, hepatitis, peptic ulcer disease, splenic in farction, perforated viscus, testicular torsion, this is not meant to be an all- inclusive list EKG interpreted by me (3pts min.)? @ -Not obtained X-rays interpreted by me (1pt min.)? @ -Not obtained CT interpreted by me (1pt min.)? @ -Not obtained U/S interpreted by me (1pt. min.)? @ -Gallbladder US obtained. My interpretation identifies cholelithiasis and no evidence of gallbladder wall thickening. What testing was considered but not performed? (CT, X-rays, U/S, labs)? Why? @ -None What meds were considered but not given? Why? @ -None Did you discuss the management of the patient with other professionals? @ -Yes, Dr. Boggs, who advised following up with him in the office tomorrow at 9am. Did you reconcile home meds? @ -No Was smoking cessation discussed for >3mins.? @ -No Was critical care preformed (if so, how long)? @ -No Were there social determinants of health that impacted care today? How? (Homelessness, low income, unemployed, alcoholism, drug addiction, transportation, low edu. Level, literacy, decrease access to med. care, longterm, rehab)? @ -No Was there de-escalation of care discussed even if they declined? (Discuss DNR or withdrawal of care, Hospice)? @ -No What co-morbidities impacted this encounter? (DM, HTN, Smoking, COPD, CAD, Cancer, CVA, Hep., AIDS, mental health diagnosis, sleep apnea, morbid obesity)? @ -Morbid obesity Was patient admitted / discharged? @ -Discharged. Lab work obtained and found be nonactionable. He has a very minor elevation in his ALT at 67, which has been elevated in the past. Gallbladder ultrasound reveals a 2.1 cm gallstone in the gallbladder neck without evidence of an acute cholecystitis. Case discussed with Dr. Boggs. He advised that the patient can see him in the office tomorrow at 9 AM. I did research which insurance is accepted, and Heather's website states that the [facility] insurance, which is what the patient has, is accepted. Instructed him to go to the appointment at 9 AM tomorrow and confirm this with the office. If the insurance is not accepted, advised he see if there is anything that can be done to help with the costs. Otherwise advised to continue to have small low fat meals and alternate with ibuprofen and Tylenol as needed for discomfort. Starter pack for Zofran provided as well. Undiagnosed new problem with uncertain prognosis? @ -None Drug Therapy requiring intensive monitoring for toxicity (Heparin, Nitro, Insulin, Cardizem)? @ -None Were any procedures done? @ -None Diagnosis/symptom? @ -Cholelithiasis Acute, or Chronic, or Acute on Chronic? @ -Chronic Uncomplicated (without systemic symptoms) or Complicated (systemic symptoms)? @ -Uncomplicated Side effects of treatment? @ -None Exacerbation, Progression, or Severe Exacerbation] @ -Not applicable Poses a threat to life or bodily function? @ -This is having some impact on his daily functioning in terms of being able to eat. Return precautions reviewed in depth, the patient is instructed to return to the emergency department with any new, worsening, or concerning symptoms. Patient verbalized understanding. This case was discussed in detail with the attending ED physician, Dr. Conner. Presentation, findings, and treatment plan discussed in detail as well. (Yun Maldonado) - Lab Data Lab Results 11/26/22 11/26/22 11/26/22 Range/Units 20:37 20:37 20:37 WBC 5.7 (3.8-10.6) k/uL RBC 5.62 (4.30-5.90) m/uL Hgb 15.8 (13.0-17.5) gm/dL Hct 46.6 (39.0-53.0) % MCV 82.8 (80.0-100.0) fL MCH 28.1 (25.0-35.0) pg MCHC 33.9 (31.0-37.0) g/dL RDW 13.1 (11.5-15.5) % Plt Count 241 (150-450) k/uL MPV 7.2 Neutrophils % 69 % Lymphocytes % 18 % Monocytes % 6 % Eosinophils % 4 % Basophils % 1 % Neutrophils # 3.9 (1.3-7.7) k/uL Lymphocytes # 1.0 (1.0-4.8) k/uL Monocytes # 0.4 (0-1.0) k/uL Eosinophils # 0.2 (0-0.7) k/uL Basophils # 0.1 (0-0.2) k/uL Sodium 139 (137-145) mmol/L Potassium 4.4 (3.5-5.1) mmol/L Chloride 102 (98-107) mmol/L Carbon Dioxide 27 (22-30) mmol/L Anion Gap 10 mmol/L BUN 13 (9-20) mg/dL Creatinine 0.86 (0.66-1.25) mg/dL Est GFR (CKD-EPI)AfAm >90 (>60 ml/min/1.73 sqM) Est GFR (CKD-EPI)NonAf >90 (>60 ml/min/1.73 sqM) Glucose 88 (74-99) mg/dL Plasma Lactic Acid Haresh 1.3 (0.7-2.0) mmol/L Calcium 9.1 (8.4-10.2) mg/dL Total Bilirubin 1.1 (0.2-1.3) mg/dL AST 50 (17-59) U/L ALT 67 H (4-49) U/L Alkaline Phosphatase 49 (38-126) U/L Total Protein 7.1 (6.3-8.2) g/dL Albumin 4.5 (3.5-5.0) g/dL Amylase 49 (30-110) U/L Lipase 153 (23-300) U/L Disposition <Hayley Florez - Last Filed: 11/26/22 18:34> Is patient prescribed a controlled substance at d/c from ED?: No <Yun Maldonado - Last Filed: 11/26/22 23:57> Clinical Impression: Cholelithiasis Disposition: HOME SELF-CARE Instructions (If sedation given, give patient instructions): Gallstones (ED), Low Fat Diet (ED) Additional Instructions: Return to the emergency department with any new, worsening, or concerning symptoms. Alternate with ibuprofen and Tylenol as needed for discomfort. You can have the Zofran up to every 8 hours as needed for nausea and vomiting. Continue to eat small low fat meals. Follow-up with Dr. Boggs in his office tomorrow morning at 9 AM. Tell the office that you were seen in the emergency department and the ER provider spoke with him directly, and he instructed you to come in at 9 AM for an appointment. Try to show up a little early if you can to fill out paperwork. Referrals: Mohit Nathan MD [Primary Care Provider] - 1-2 days Pedro Boggs MD [STAFF PHYSICIAN] - 11/27/22 9:00 am (9am tomorrow)
--- NOTE | 2022-11-26 19:17 | US ---
EXAMINATION TYPE: US gallbladder DATE OF EXAM: 11/26/2022 COMPARISON: 09/11/22 ultrasound liver CLINICAL INDICATION: Male, 27 years old with history of gallstones; RUQ pain. Hx of gallstones TECHNIQUE: Multiple sonographic images of the right upper quadrant are obtained. FINDINGS: EXAM MEASUREMENTS: Liver Length: 15.1 cm Gallbladder Wall: 0.27 cm CBD: 0.26 cm Right Kidney: 10.4 x 4.2 x 4.5 cm MAPPING EDITOR NOTES: Pancreas: Parts visualized appear wnl Liver: Heterogeneous with increased echogenicity Gallbladder: Gallstone visualized near neck measuring 2.1cm Evidence for sonographic Aguilar's sign: No CBD: wnl Right Kidney: wnl Suboptimal evaluation of pancreas on initial images. Liver remains heterogeneously hyperechoic withou t adjacent ascites. No biliary dilatation. Large intraluminal shadowing gallstone redemonstrated. No new wall thickening or adjacent fluid. No right-sided hydronephrosis. IMPRESSION: Gallstone without secondary ultrasound evidence for acute cholecystitis. Heterogeneity of liver likely on basis of fatty infiltrative hepatocellular disease redemonstrated. No significant ch brenda from prior ultrasound.
[2022-11-26 21:23] LABS: Basophils # (A) 0.1 k/uL (0-0.2); Basophils % (A) 1 %; Eosinophils # (A) 0.2 k/uL (0-0.7); Eosinophils % (A) 4 %; HCT 46.6 % (39.0-53.0); HGB 15.8 gm/dL (13.0-17.5); Lymphocytes % (A) 18 %; MCH 28.1 pg (25.0-35.0); MCHC 33.9 g/dL (31.0-37.0); MCV 82.8 fL (80.0-100.0); Mean Platelet Volume 7.2; Monocytes # (A) 0.4 k/uL (0-1.0); Monocytes % (A) 6 %; Neutrophils # (A) 3.9 k/uL (1.3-7.7); Neutrophils % (A) 69 %; Platelet Count 241 k/uL (150-450); RBC 5.62 m/uL (4.30-5.90); RDW 13.1 % (11.5-15.5); WBC 5.7 k/uL (3.8-10.6)
[2022-11-26 21:58] LABS: ALT 67 U/L (4-49); AST 50 U/L (17-59); African American GFR (CKD) >90 (>60 ml/min/1.73 sqM); Albumin 4.5 g/dL (3.5-5.0); Alkaline Phosphatase 49 U/L (38-126); Amylase 49 U/L (30-110); Anion Gap 10 mmol/L; Blood Urea Nitrogen 13 mg/dL (9-20); Calcium 9.1 mg/dL (8.4-10.2); Carbon Dioxide 27 mmol/L (22-30); Chloride 102 mmol/L (98-107); Glucose 88 mg/dL (74-99); Lipase 153 U/L (23-300); Non-African American GFR(CKD) >90 (>60 ml/min/1.73 sqM); Potassium 4.4 mmol/L (3.5-5.1); Sodium 139 mmol/L (137-145); Total Bilirubin 1.1 mg/dL (0.2-1.3); Total Protein 7.1 g/dL (6.3-8.2)
[2022-11-26] MEDS ORDERED: ONDANSETRON 4 MG ODT STARTER PACK 2 TAB BTL PO STA (22:49)
[2022-11-26] MEDS ORDERED: IBUPROFEN 600 MG STARTER PACK 4 TAB BTL PO STA (22:49)
[2022-11-26] MEDS ORDERED: ACET/COD 300 MG/30 MG STARTER PACK 6 TAB BTL PO STA (22:49)
== END 2022-11-26 23:14 | disposition home or self-care (01) ==
LOC: EC 16:41
DX: K80.20 Calculus of gallbladder without cholecystitis without obstruction (principal); F17.290 Nicotine dependence, other tobacco product, uncomplicated; Z86.59 Personal history of other mental and behavioral disorders
CPT/HCPCS: 36415; 80053; 82150; 83605; 83690; 85025; 76705; 99284; S0119

== ENCOUNTER 2022-12-14 06:02 | Day surgery (SDC) | payer OTHER ==
[2022-12-13 09:55] VITALS: BMI 34.4
[~2022-12-14 06:02] MED LIST: ACETAMINOPHEN TAB 500 MG TAB PO PRN; HEPARIN SODIUM,PORCINE/PF 5,000 UNIT/0.5 ML SYRINGE SQ PRN; LACTATED RINGERS 1,000 ML IV SCH
[2022-12-14] MEDS ORDERED: ONDANSETRON 4 MG/2 ML VIAL ONE (06:49)
[2022-12-14] MEDS ORDERED: DEXAMETHASONE SOD PHOSPHATE 4 MG/ML 1 ML VIAL IVP ONE (06:54)
[2022-12-14] MEDS ORDERED: ONDANSETRON 4 MG/2 ML VIAL IVP ONE (06:54)
[2022-12-14] MEDS ORDERED: ROCURONIUM 10 MG/ML (5 ML VIAL) IV ONE (07:13)
[2022-12-14] MEDS ORDERED: LIDOCAINE 2% INJ 20 MG/ML (2 ML VIAL) ONE (07:13)
[2022-12-14] MEDS ORDERED: MIDAZOLAM 2 MG/2 ML VIAL ONE (07:13)
[2022-12-14] MEDS ORDERED: PROPOFOL 10 MG/ML 20 ML VIAL IV ONE (07:13)
[2022-12-14] MEDS ORDERED: GLYCOPYRROLATE 0.2 MG/ML 2 ML VIAL ONE (07:13)
[2022-12-14] MEDS ORDERED: SUCCINYLCHOLINE CHLORIDE 200 MG/10 ML VIAL IV ONE (07:13)
[2022-12-14] MEDS ORDERED: HYDROmorphone (PF) 1 MG/ML ONE (07:13)
[2022-12-14] MEDS ORDERED: fentaNYL (PF) 50 MCG/ML 2 ML AMP ONE (07:13)
[2022-12-14] MEDS ORDERED: NEOSTIGMINE 1 MG/ML 10 ML VIAL ONE (07:13)
[2022-12-14] MEDS ORDERED: BUPIVACAINE (PF) 0.25% 30 ML VIAL SQ ONE (07:43)
--- NOTE | 2022-12-14 08:07 | P.OP ---
Date of Procedure: 12/14/22 Preoperative Diagnosis: Cholecystitis Cholelithiasis Postoperative Diagnosis: Cholecystitis Cholelithiasis Procedure(s) Performed: Laparoscopic cholecystectomy Anesthesia: ERICKA Surgeon: Pedro Boggs Estimated Blood Loss (ml): 5 Pathology: other (Gallbladder) Condition: stable Disposition: PACU Description of Procedure: The patient was placed on the operating table. The patient received a general endotracheal tube anesthesia. The patients abdomen was prepped and draped in the usual sterile fashion. Through an infraumbilical stab incision, the fascia of the anterior abdominal wall was grasped with a pair of Kochers and then the Veress needle was placed in the peritoneal cavity. Position of the Veress needle was confirmed with positive drop test. The abdomen was then insufflated. After adequate insufflation, the 10 mm trocar was placed in the peritoneal cavity. Following this the laparoscope was placed in the peritoneal cavity. The patient was placed in the head-up, right side up position and then a 5 mm trocar was placed in the right lateral and right subcostal position under direct visualization. A 8 mm trocar was placed in the epigastric position. The gallbladder was grasped in the fundus and infundibulum. Traction on the gallbladder was placed in the lateral and the cephalad positions. The triangle of Calot was visualized.. The cystic duct was bluntly dissected until the union of the cystic duct and common bile duct wa s seen. A critical view of safety was achieved. The cystic duct was then divided and sealed with the Harmonic scissors. A PDS Endoloop was then placed throughout the cystic duct stump. The cystic artery divided and sealed with the Harmonic scissors. The gallbladder was then removed from the liver bed using Harmonic scissors. The gallbladder was then extracted through the epigastric port site. Operative field was checked for any bleeding spots and Harmonic scissors was used to coagulate the liver bed. The abdomen was irrigated. The trocars were removed. The skin was closed using interrupted 3-0 Vicryl suture. Dermabond dressing were applied. The patient tolerated the procedure well.
[2022-12-14 08:16] VITALS: TEMP 97
[2022-12-14] MEDS ORDERED: HYDROmorphone 0.5 MG/0.5 ML SYRINGE IVP ONE ×2 (08:17→08:28)
[2022-12-14] MEDS ORDERED: METOCLOPRAMIDE 5 MG/ML 2 ML VIAL IVP ONE (08:20)
[2022-12-14] MEDS ORDERED: HYDROcodone/APAP 7.5-325MG 1 EACH TAB PO ONE (10:39)
[2022-12-14 11:05] VITALS: BP 119/73; PULSE 60; RESP 18
== END 2022-12-14 11:40 | disposition home or self-care (01) ==
LOC: OR 06:02
PROVIDERS: ATTEND Surgery
DX: K80.10 Calculus of gallbladder with chronic cholecystitis without obstruction (principal); J45.909 Unspecified asthma, uncomplicated; F32.A Depression, unspecified; F17.210 Nicotine dependence, cigarettes, uncomplicated; K21.9 Gastro-esophageal reflux disease without esophagitis; Z79.899 Other long term (current) drug therapy
CPT/HCPCS: 88304; 47562; J2250; J0330; J1100; J2710; J2765; J0690; J2405; J3010; J1170 ×2; J2704; J1644; J2001

== ENCOUNTER 2022-12-15 13:40 | Emergency (ER) | payer OTHER ==
[2022-12-15 13:47] VITALS: TEMP 98.3
[2022-12-15] MEDS ORDERED: SODIUM CHLORIDE 0.9% 1,000 ML IV STA (14:06)
[2022-12-15 14:26] LABS: Basophils % (A) 0 %; Eosinophils # (A) 0.2 k/uL (0-0.7); Eosinophils % (A) 3 %; HCT 42.7 % (39.0-53.0); HGB 14.5 gm/dL (13.0-17.5); Lymphocytes # (A) 1.3 k/uL (1.0-4.8); Lymphocytes % (A) 21 %; MCH 27.9 pg (25.0-35.0); MCV 82.1 fL (80.0-100.0); Mean Platelet Volume 7.4; Monocytes # (A) 0.4 k/uL (0-1.0); Monocytes % (A) 6 %; Neutrophils # (A) 4.1 k/uL (1.3-7.7); Neutrophils % (A) 68 %; Platelet Count 213 k/uL (150-450); RBC 5.21 m/uL (4.30-5.90); RDW 13.1 % (11.5-15.5); WBC 6.1 k/uL (3.8-10.6)
[2022-12-15 14:35] LABS: ALT 49 U/L (4-49); AST 39 U/L (17-59); African American GFR (CKD) >90 (>60 ml/min/1.73 sqM); Alkaline Phosphatase 45 U/L (38-126); Anion Gap 10 mmol/L; Blood Urea Nitrogen 11 mg/dL (9-20); Calcium 8.9 mg/dL (8.4-10.2); Carbon Dioxide 25 mmol/L (22-30); Chloride 103 mmol/L (98-107); Glucose 89 mg/dL (74-99); Lipase 114 U/L (23-300); Non-African American GFR(CKD) >90 (>60 ml/min/1.73 sqM); Sodium 138 mmol/L (137-145); Total Bilirubin 0.7 mg/dL (0.2-1.3); Total Protein 6.4 g/dL (6.3-8.2)
[2022-12-15 14:38] LABS: INR 0.9 (<1.2); Partial Thromboplastin Time 22.3 sec (22.0-30.0)
[2022-12-15] MEDS ORDERED: PANTOPRAZOLE 40 MG/10 ML VIAL IVP STA (14:48)
[2022-12-15] MEDS ORDERED: MAG HYDROX/AL HYDROX/SIMETH 30 ML, HYOSCYAMINE ELIXIR 10 ML, LIDOCAINE 2% GLYDO JELLY 1... PO STA ×3 (14:48)
--- NOTE | 2022-12-15 15:34 | XR ---
EXAMINATION TYPE: XR chest 2V DATE OF EXAM: 12/15/2022 COMPARISON: 05/28/2020 HISTORY: Chest pain TECHNIQUE: Frontal and lateral views of the chest are obtained. FINDINGS: There is no focal air space opacity. No evidence for pneumothorax. No pleural effusion. The cardiac silhouette size is within normal limits. The osseous structures are grossly intact. IMPRESSION: 1. No acute cardiopulmonary process.
--- NOTE | 2022-12-15 16:01 | ED ---
Chest Pain HPI - General Chief Complaint: Chest Pain Stated Complaint: Post-op chest pain Time Seen by Provider: 12/15/22 14:05 Source: patient Mode of arrival: ambulatory Limitations: no limitations - History of Present Illness Initial Comments: 27-year-old male presents to the emergency room reporting chest pain. He is recent postop from cholecystectomy yesterday with Dr. Boggs. States that he has some expected abdominal discomfort however this morning the patient began having some chest pain. Describes it as a pressure sensation with associated shortness of breath. He also admits to burning reflux. He has taken his prescribed pain medication however it has not been helping. He denies previous history of cardiac disease. No calf pain or swelling. No fevers. No nausea or vomiting. No other alleviating, precipitating or modifying factors - Related Data Home Medications Medication Instructions Recorded Confirmed Divalproex ER [Depakote ER] 250 mg PO QAM 12/13/22 12/14/22 Vitamin D (Unknown Dose) 1 tab PO DAILY 12/13/22 12/14/22 traZODone HCL [Desyrel] 50 mg PO HS 12/13/22 12/14/22 Previous Rx's Medication Instructions Recorded Acetaminophen Tab [Tylenol] 650 mg PO Q6H #30 tab 12/14/22 Docusate [Colace] 100 mg PO BID #20 capsule 12/14/22 Ibuprofen [Motrin] 600 mg PO Q6HR PRN #40 tab 12/14/22 oxyCODONE HCL [OxyIR] 5 mg PO Q6H PRN 3 Days #10 tab 12/14/22 Allergies Allergy/AdvReac Type Severity Reaction Status Date / Time No Known Allergies Allergy Verified 12/15/22 13:47 Review of Systems ROS Statement: Those systems with pertinent positive or pertinent negative responses have been documented in the HPI. ROS Other: All systems not noted in ROS Statement are negative. Past Medical History Past Medical History: GERD/Reflux Additional Past Medical History / Comment(s): irregular heart beat but states he never saw dr he just knows his heart rate was fast. History of Any Multi-Drug Resistant Organisms: None Reported Past Surgical History: Cholecystectomy, Orthopedic Surgery Additional Past Surgical History / Comment(s): Right knee scope. Past Anesthesia/Blood Transfusion Reactions: No Reported Reaction Past Psychological History: ADD/ADHD, Depression Smoking Status: Vaper Past Alcohol Use History: Occasional Past Drug Use History: Marijuana - Past Family History Father Family Medical History: Cancer Additional Family Medical History / Comment(s): Stomach cancer with metasis to liver. General Exam Limitations: no limitations General appearance: alert, in no apparent distress Head exam: Present: atraumatic, normocephalic, normal inspection Eye exam: Present: normal appearance, PERRL, EOMI. Absent: scleral icterus, conjunctival injection, periorbital swelling ENT exam: Present: normal exam, mucous membranes moist Neck exam: Present: normal inspection. Absent: tenderness, meningismus, lymphadenopathy Respiratory exam: Present: normal lung sounds bilaterally. Absent: respiratory distress, wheezes, rales, rhonchi, stridor Cardiovascular Exam: Present: regular rate, normal rhythm, normal heart sounds. Absent: systolic murmur, diastolic murmur, rubs, gallop, clicks GI/Abdominal exam: Present: soft, tenderness (Right upper quadrant where the patient had surgery. His incisions are intact with dried blood. No active bleeding. No dehiscence), normal bowel sounds. Absent: distended, guarding, rebound, rigid Extremities exam: Present: normal inspection, full ROM, normal capillary refill. Absent: tenderness, pedal edema, joint swelling, calf tenderness Back exam: Present: normal inspection Neurological exam: Present: alert, oriented X3, CN II-XII intact Psychiatric exam: Present: normal affect, normal mood Skin exam: Present: warm, dry, intact, normal color. Absent: rash Course Vital Signs 12/15/22 12/15/22 13:45 16:16 Temperature 98.3 F Pulse Rate 71 74 Respiratory 20 16 Rate Blood Pressure 145/87 131/87 O2 Sat by Pulse 99 98 Oximetry Chest Pain MDM - MDM Was pt. sent in by a medical professional or institution (, PA, MISCELLANEOUS MACHINE OPERATOR, urgent care, hospital, or penitentiary...) When possible be specific @ -No Did you speak to anyone other than the patient for history (EMS, parent, family, police, friend...)? What history was obtained from this source @ -No Did you review nursing and triage notes (agree or disagree)? Why? @ -I reviewed and agree with nursing and triage notes Were old charts reviewed (outside hosp., previous admission, EMS record, old EKG, old radiological studies, urgent care reports/EKG's, penitentiary records)? Report findings @ -I reviewed the patient's procedure note from yesterday Differential Diagnosis (chest pain, altered mental status, abdominal pain women, abdominal pain men, vaginal bleeding, weakness, fever, dyspnea, syncope, headache, dizziness, GI bleed, back pain, seizure, CVA, palpatations, mental health, musculoskeletal)? @ -Differential Chest Pain: Stable Angina, Unstable Angina, STEMI, NSTEMI Aortic Dissection, Pneumothorax, Musculoskeletal, Esophageal Spasm GERD, Cholecystitis, Pancreatitis, Zoster, this is not meant to be an all-inclusive list. EKG interpreted by me (3pts min.). @ -EKG interpreted by me as a normal sinus rhythm with a rate of 67. PA interval 154. QRS 88. QTC of 370. No acute ST segment elevations. Inverted T-wave in lead 3 X-rays interpreted by me (1pt min.). @ -Yes and demonstrates no acute process CT interpreted by me (1pt min.). @ -None done U/S interpreted by me (1pt. min.). @ -None done What testing was considered but not performed or refused? (CT, X-rays, U/S, labs)? Why? @ -CT of the chest was considered however d-dimer is negative What meds were considered but not given or refused? Why? @ -Narcotics however the patient needs to drive home and therefore is requesting that he does not receive these Did you discuss the management of the patient with other professionals (professionals i.e. , PA, MISCELLANEOUS MACHINE OPERATOR, lab, RT, psych nurse, public health social worker, cloud subject matter expert, teacher, chairman president and chief executive officer, casino cage manager)? Give summary @ -No Was smoking cessation discussed for >3mins.? @ -No Was critical care preformed (if so, how long)? @ -No Were there social determinants of health that impacted care today? How? (Homelessness, low income, unemployed, alcoholism, drug addiction, transportation, low edu. Level, literacy, decrease access to med. care, fci, rehab)? @ -No Was there de-escalation of care discussed even if they declined (Discuss DNR or withdrawal of care, Hospice)? DNR status @ -No What co-morbidities impacted this encounter? (DM, HTN, Smoking, COPD, CAD, Cancer, CVA, ARF, Chemo, Hep., AIDS, mental health diagnosis, sleep apnea, morbid obesity)? @ -Cholelithiasis for which the patient had a cholecystectomy yesterday Was patient admitted / discharged? Hospital course, mention meds given and route, prescriptions, significant lab abnormalities, going to OR and other pertinent info. @ -Upon arrival patient was placed in room 10. A thorough history and physical exam was performed. IV access is established and laboratory studies were conducted. Patient was given Protonix and a GI cocktail. Laboratory studies are reviewed. D-dimer is negative troponin is negative. Chest x-ray demonstrates no acute process. Patient reevaluated and reports that he does feel improved. He is instructed that he will be discharged home however needs to continue being active at home. Recommend that he walk to alleviate any retained gas in his abdomen. He needs to call to make an appointment with Dr. Boggs and return for any new or worsening symptoms. Patient was agreeable to this plan and he was discharged home in stable condition Undiagnosed new problem with uncertain prognosis? @ -Yes Drug Therapy requiring intensive monitoring for toxicity (Heparin, Nitro, Insulin, Cardizem)? @ -No Were any procedures done? @ -No Diagnosis/symptom? @ -Acute chest pain, status post cholecystectomy Acute, or Chronic, or Acute on Chronic? @ -Acute Uncomplicated (without systemic symptoms) or Complicated (systemic symptoms)? @ -Complicated Side effects of treatment? @ -No Exacerbation, Progression, or Severe Exacerbation? @ -No Poses a threat to life or bodily function? How? (Chest pain, [place], [place], pneumonia, PE, COPD, DKA, ARF, appy, cholecystitis, CVA, Diverticulitis, Homicidal, Suicidal, threat to staff... and all critical care pts) @ -No Disposition Clinical Impression: Chest pain, S/P cholecystectomy Disposition: HOME SELF-CARE Condition: Stable Instructions (If sedation given, give patient instructions): Chest Pain (ED) Additional Instructions: Please follow-up with your primary care doctor. in 2-4 days. Follow-up with your surgeon at your regularly scheduled appointment. Take your medications as directed. Return for any new or worsening symptoms Is patient prescribed a controlled substance at d/c from ED?: No Referrals: Mohit Nathan MD [Primary Care Provider] - 1-2 days Pedro Boggs MD [STAFF PHYSICIAN] - 1-2 days Time of Disposition: 16:01
[2022-12-15 16:17] VITALS: BP 131/87; PULSE 74; RESP 16
== END 2022-12-15 16:16 | disposition home or self-care (01) ==
LOC: EC 13:40
DX: R07.89 Other chest pain (principal); Z90.49 Acquired absence of other specified parts of digestive tract; F32.A Depression, unspecified; F17.290 Nicotine dependence, other tobacco product, uncomplicated; F12.90 Cannabis use, unspecified, uncomplicated; Z79.899 Other long term (current) drug therapy
CPT/HCPCS: 36415; 85379; 83880; 80053; 83690; 83735; 84484; 85025; 85610; 85730; 71046; 99285; 96374; 96361 ×2; C9113

== ENCOUNTER 2023-09-29 23:09 | Emergency (ER) | payer BC, OTHER ==
[2023-09-29 23:21] VITALS: RESP 18; TEMP 98.7
[2023-09-30] MEDS: SODIUM CHLORIDE 0.9% 1,000 ML IV STA (00:26)
--- NOTE | 2023-09-30 00:37 | ED ---
General Adult HPI - General Source: patient, RN notes reviewed, old records reviewed Mode of arrival: ambulatory Limitations: no limitations <Osorio Keenan - Last Filed: 09/30/23 01:19> <Anshul Weaver - Last Filed: 10/12/23 16:13> - General Chief complaint: Nausea/Vomiting/Diarrhea Stated complaint: Diarrhea Time Seen by Provider: 09/29/23 23:50 - History of Present Illness Initial comments: Patient is a 28-year-old male who presents emergency department with 4 days of diarrhea. States he has been having greater than 10 episodes of diarrhea a day that has been nonbilious nonbloody. Has been using Pepto-Bismol as well as [id number] antidiarrheals with minimal improvement. No known sick contacts. Denies any other symptoms. Endorses crampy abdominal pain. Presents for further evaluation. Has a history of a cholecystectomy. Endorses nausea and 1 episode of emesis. Denies any fevers, chills, cough. Denies any urinary complaints.Patient is on CBD Gummies and is concerned this may be what is causing his symptoms. (Osorio Keenan) - Related Data Home Medications Medication Instructions Recorded Confirmed Divalproex ER [Depakote ER] 250 mg PO QAM 12/13/22 12/14/22 Vitamin D (Unknown Dose) 1 tab PO DAILY 12/13/22 12/14/22 traZODone HCL [Desyrel] 50 mg PO HS 12/13/22 12/14/22 Previous Rx's Medication Instructions Recorded Acetaminophen Tab [Tylenol] 650 mg PO Q6H #30 tab 12/14/22 Docusate [Colace] 100 mg PO BID #20 capsule 12/14/22 Ibuprofen [Motrin] 600 mg PO Q6HR PRN #40 tab 12/14/22 oxyCODONE HCL [OxyIR] 5 mg PO Q6H PRN 3 Days #10 tab 12/14/22 Allergies Allergy/AdvReac Type Severity Reaction Status Date / Time No Known Allergies Allergy Verified 09/29/23 23:15 Review of Systems ROS Other: All systems not noted in ROS Statement are negative. <Osorio Keenan - Last Filed: 09/30/23 01:19> ROS Other: All systems not noted in ROS Statement are negative. <Anshul Weaver - Last Filed: 10/12/23 16:13> ROS Statement: Those systems with pertinent positive or pertinent negative responses have been documented in the HPI. Review of Systems: CONST: Denies fever EYES: Denies blurry vision ENT: Denies nasal congestion C/V: Denies Chest pain RESP: Denies shortness of breath GI: Denies abdominal pain : Denies dysuria SKIN: Denies rash. MSK: Denies joint pain. NEURO: Denies headache (Osorio Keenan) Past Medical History Past Medical History: GERD/Reflux Additional Past Medical History / Comment(s): irregular heart beat but states he never saw dr he just knows his heart rate was fast. History of Any Multi-Drug Resistant Organisms: None Reported Past Surgical History: Cholecystectomy, Orthopedic Surgery Additional Past Surgical History / Comment(s): Right knee scope. Past Anesthesia/Blood Transfusion Reactions: No Reported Reaction Past Psychological History: ADD/ADHD, Anxiety, Depression Smoking Status: Vaper Past Alcohol Use History: Occasional Past Drug Use History: Marijuana - Past Family History Father Family Medical History: Cancer Additional Family Medical History / Comment(s): Stomach cancer with metasis to liver. <Osorio Keenan - Last Filed: 09/30/23 01:19> General Exam Limitations: no limitations <Osorio Keenan - Last Filed: 09/30/23 01:19> - General Exam Comments Initial Comments: General: Appears in no acute distress. HEAD: Normal with no signs of head trauma. EYES: PERRLA, EOMI, conjunctiva normal, no discharge. ENT: Hearing grossly intact, normal oropharynx. RESPIRATORY: Clear breath sounds bilaterally. No wheezes, rales, or rhonchi. C/V: Regular rate and rhythm. S1 and S2 auscultated, no edema, peripheral pulses 2+ and intact throughout ABD: Abd is soft, nontender, nondistended EXT: Normal range of motion, no obvious deformity SKIN: No rashes or lesions observed on exposed skin. NEURO: Alert and oriented x 4. (Osorio Keenan) Course Vital Signs 09/29/23 09/30/23 23:11 02:10 Temperature 98.7 F Pulse Rate 83 75 Respiratory 18 18 Rate Blood Pressure 120/77 125/92 O2 Sat by Pulse 99 97 Oximetry Medical Decision Making - Lab Data Result diagrams: 03/18/24 00:07 <Osorio Keenan - Last Filed: 09/30/23 01:19> - Lab Data Result diagrams: 09/30/23 00:07 09/30/23 00:07 <Anshul Weaver - Last Filed: 10/12/23 16:13> - Medical Decision Making Was pt. sent in by a medical professional or institution ([facility] Lopez, PERFORATOR LOADER, urgent care, hospital, or senior care...) When possible be specific @ -No Did you speak to anyone other than the patient for history (EMS, parent, family, police, friend...)? What history was obtained from this source @ -No Did you review nursing and triage notes (agree or disagree)? Why? @ -I reviewed and agree with nursing and triage notes Were old charts reviewed (outside hosp., previous admission, EMS record, old EKG, old radiological studies, urgent care reports/EKG's, senior care records)? Report findings @ -Old charts reviewed Differential Diagnosis (chest pain, altered mental status, abdominal pain women, abdominal pain men, vaginal bleeding, weakness, fever, dyspnea, syncope, headache, dizziness, GI bleed, back pain, seizure, CVA, palpatations, mental health, musculoskeletal)? @ -Diarrhea, viral syndrome, bacterial illness, medication side effect, dehydration, UTI. This list is not all inclusive. EKG interpreted by me (3pts min.). @ -None done X-rays interpreted by me (1pt min.). @ -None done CT interpreted by me (1pt min.). @ -None done U/S interpreted by me (1pt. min.). @ -None done What testing was considered but not performed or refused? (CT, X-rays, U/S, labs)? Why? @ -Discussed obtaining imaging however patient and I both agreed to defer at this time. What meds were considered but not given or refused? Why? @ -I offered analgesia medications which were declined. Did you discuss the management of the patient with other professionals (professionals i.e. JESSICA Lopez, PERFORATOR LOADER, lab, RT, psych nurse, social service director, sales and management trainee, teacher, deputy juvenile officer, family caseworker)? Give summary @ -No Was smoking cessation discussed for >3mins.? @ -No Was critical care preformed (if so, how long)? @ -No Were there social determinants of health that impacted care today? How? (Homelessness, low income, unemployed, alcoholism, drug addiction, transportation, low edu. Level, literacy, decrease access to med. care, intermediate, rehab)? @ -No Was there de-escalation of care discussed even if they declined (Discuss DNR or withdrawal of care, Hospice)? DNR status @ -No What co-morbidities impacted this encounter? (DM, HTN, Smoking, COPD, CAD, Cancer, CVA, ARF, Chemo, Hep., AIDS, mental health diagnosis, sleep apnea, morbid obesity)? @ -None Was patient admitted / discharged? Hospital course, mention meds given and route, prescriptions, significant lab abnormalities, going to OR and other pertinent info. @ -Based on the patient's presentation and physical exam, presents with diarrhea for 4 to 5 days. No other symptoms. Intermittent abdominal pain. Vital signs within acceptable limits. We will obtain abdominal laboratory studies and patient will be symptomatically treated with IV fluids. We discussed imaging at this time both agreed to defer. We also discussed analgesia medications which patient declines. He is on CBD Gummies and is concerned this may be contributing to his symptoms. Vital signs are within acceptable limits. Patient signed out to Dr. Weaver pending results of workup Undiagnosed new problem with uncertain prognosis? @ -No Drug Therapy requiring intensive monitoring for toxicity (Heparin, Nitro, Insulin, Cardizem)? @ -No Were any procedures done? @ -No (Osorio Keenan) - Lab Data Lab Results 09/30/23 09/30/23 09/30/23 Range/Units 00:07 00:07 00:07 WBC 4.9 (3.8-10.6) k/uL RBC 6.02 H (4.30-5.90) m/uL Hgb 16.6 (13.0-17.5) gm/dL Hct 49.2 (39.0-53.0) % MCV 81.7 (80.0-100.0) fL MCH 27.6 (25.0-35.0) pg MCHC 33.8 (31.0-37.0) g/dL RDW 13.4 (11.5-15.5) % Plt Count 227 (150-450) k/uL MPV 7.4 Neutrophils % 65 % Lymphocytes % 21 % Monocytes % 8 % Eosinophils % 2 % Basophils % 1 % Neutrophils # 3.1 (1.3-7.7) k/uL Lymphocytes # 1.0 (1.0-4.8) k/uL Monocytes # 0.4 (0-1.0) k/uL Eosinophils # 0.1 (0-0.7) k/uL Basophils # 0.1 (0-0.2) k/uL Sodium 144 (137-145) mmol/L Potassium 4.1 (3.5-5.1) mmol/L Chloride 110 H (98-107) mmol/L Carbon Dioxide 22 (22-30) mmol/L Anion Gap 12 mmol/L BUN 18 (9-20) mg/dL Creatinine 0.85 (0.66-1.25) mg/dL Est GFR (CKD-EPI)AfAm >90 (>60 ml/min/1.73 sqM) Est GFR (CKD-EPI)NonAf >90 (>60 ml/min/1.73 sqM) Glucose 109 H (74-99) mg/dL Plasma Lactic Acid Haresh (0.7-2.0) mmol/L Calcium 9.3 (8.4-10.2) mg/dL Total Bilirubin 0.7 (0.2-1.3) mg/dL AST 40 (17-59) U/L ALT 47 (4-49) U/L Alkaline Phosphatase 68 (38-126) U/L Total Protein 7.2 (6.3-8.2) g/dL Albumin 4.6 (3.5-5.0) g/dL Amylase 57 (30-110) U/L Lipase 163 (23-300) U/L Urine Color Dark Yellow Urine Appearance Turbid (Clear) Urine pH 5.5 (5.0-8.0) Ur Specific [place] 1.036 H (1.001-1.035) Urine Protein 1+ H (Negative) Urine Glucose (UA) Negative (Negative) Urine Ketones Negative (Negative) Urine Blood Negative (Negative) Urine Nitrite Negative (Negative) Urine Bilirubin Negative (Negative) Urine Urobilinogen <2.0 (<2.0) mg/dL Ur Leukocyte Esterase Negative (Negative) Amorphous Sediment Occasional H (None) /hpf Urine Mucus Few H (None) /hpf Influenza Type A (PCR) (Not Detectd) Influenza Type B (PCR) (Not Detectd) RSV (PCR) (Not Detectd) SARS-CoV-2 (PCR) (Not Detectd) 09/30/23 09/30/23 Range/Units 00:07 00:07 WBC (3.8-10.6) k/uL RBC (4.30-5.90) m/uL Hgb (13.0-17.5) gm/dL Hct (39.0-53.0) % MCV (80.0-100.0) fL MCH (25.0-35.0) pg MCHC (31.0-37.0) g/dL RDW (11.5-15.5) % Plt Count (150-450) k/uL MPV Neutrophils % % Lymphocytes % % Monocytes % % Eosinophils % % Basophils % % Neutrophils # (1.3-7.7) k/uL Lymphocytes # (1.0-4.8) k/uL Monocytes # (0-1.0) k/uL Eosinophils # (0-0.7) k/uL Basophils # (0-0.2) k/uL Sodium (137-145) mmol/L Potassium (3.5-5.1) mmol/L Chloride (98-107) mmol/L Carbon Dioxide (22-30) mmol/L Anion Gap mmol/L BUN (9-20) mg/dL Creatinine (0.66-1.25) mg/dL Est GFR (CKD-EPI)AfAm (>60 ml/min/1.73 sqM) Est GFR (CKD-EPI)NonAf (>60 ml/min/1.73 sqM) Glucose (74-99) mg/dL Plasma Lactic Acid Haresh 1.8 (0.7-2.0) mmol/L Calcium (8.4-10.2) mg/dL Total Bilirubin (0.2-1.3) mg/dL AST (17-59) U/L ALT (4-49) U/L Alkaline Phosphatase (38-126) U/L Total Protein (6.3-8.2) g/dL Albumin (3.5-5.0) g/dL Amylase (30-110) U/L Lipase (23-300) U/L Urine Color Urine Appearance (Clear) Urine pH (5.0-8.0) Ur Specific [place] (1.001-1.035) Urine Protein (Negative) Urine Glucose (UA) (Negative) Urine Ketones (Negative) Urine Blood (Negative) Urine Nitrite (Negative) Urine Bilirubin (Negative) Urine Urobilinogen (<2.0) mg/dL Ur Leukocyte Esterase (Negative) Amorphous Sediment (None) /hpf Urine Mucus (None) /hpf Influenza Type A (PCR) Not Detected (Not Detectd) Influenza Type B (PCR) Not Detected (Not Detectd) RSV (PCR) Not Detected (Not Detectd) SARS-CoV-2 (PCR) Not Detected (Not Detectd) Disposition <Osorio Keenan - Last Filed: 09/30/23 01:19> Is patient prescribed a controlled substance at d/c from ED?: No <Anshul Weaver - Last Filed: 10/12/23 16:13> Clinical Impression: Diarrhea Disposition: HOME SELF-CARE Condition: Good Instructions (If sedation given, give patient instructions): Acute Diarrhea (ED) Referrals: Mohit Nathan DO [Primary Care Provider] - 1-2 days
[2023-09-30 00:38] LABS: Basophils # (A) 0.1 k/uL (0-0.2); Basophils % (A) 1 %; Eosinophils # (A) 0.1 k/uL (0-0.7); Eosinophils % (A) 2 %; HCT 49.2 % (39.0-53.0); HGB 16.6 gm/dL (13.0-17.5); Lymphocytes % (A) 21 %; MCH 27.6 pg (25.0-35.0); MCHC 33.8 g/dL (31.0-37.0); MCV 81.7 fL (80.0-100.0); Mean Platelet Volume 7.4; Monocytes # (A) 0.4 k/uL (0-1.0); Monocytes % (A) 8 %; Neutrophils # (A) 3.1 k/uL (1.3-7.7); Neutrophils % (A) 65 %; Platelet Count 227 k/uL (150-450); RBC 6.02 m/uL (4.30-5.90); RDW 13.4 % (11.5-15.5); WBC 4.9 k/uL (3.8-10.6)
[2023-09-30 00:43] LABS: Amorphous Sediment,Urine Occasional /hpf; Appearance,Urine Turbid (Clear); Bilirubin,Urine Negative (Negative); Blood,Urine Negative (Negative); Color,Urine Dark Yellow; Glucose,Urine (UA) Negative (Negative); Ketones,Urine Negative (Negative); Leukocyte Esterase,Urine Negative (Negative); Mucus,Urine Few /hpf; Nitrite,Urine Negative (Negative); PH, Urine 5.5 (5.0-8.0); Protein,Urine 1+ (Negative); Specific Gravity,Urine 1.036 (1.001-1.035); Urobilinogen,Urine <2.0 mg/dL (<2.0)
[2023-09-30 01:30] LABS: ALT 47 U/L (4-49); AST 40 U/L (17-59); African American GFR (CKD) >90 (>60 ml/min/1.73 sqM); Albumin 4.6 g/dL (3.5-5.0); Alkaline Phosphatase 68 U/L (38-126); Amylase 57 U/L (30-110); Anion Gap 12 mmol/L; Blood Urea Nitrogen 18 mg/dL (9-20); Calcium 9.3 mg/dL (8.4-10.2); Carbon Dioxide 22 mmol/L (22-30); Chloride 110 mmol/L (98-107); Glucose 109 mg/dL (74-99); Lipase 163 U/L (23-300); Non-African American GFR(CKD) >90 (>60 ml/min/1.73 sqM); Potassium 4.1 mmol/L (3.5-5.1); Sodium 144 mmol/L (137-145); Total Bilirubin 0.7 mg/dL (0.2-1.3); Total Protein 7.2 g/dL (6.3-8.2)
[2023-09-30 02:41] VITALS: BP 125/92; PULSE 75
== END 2023-09-30 02:12 | disposition home or self-care (01) ==
LOC: EC 23:09
DX: R19.7 Diarrhea, unspecified (principal); F17.290 Nicotine dependence, other tobacco product, uncomplicated; Z90.49 Acquired absence of other specified parts of digestive tract
CPT/HCPCS: 36415; 80053; 81001; 82150; 83605; 83690; 85025; 87636; 96360; 96361; 99284

== ENCOUNTER → 2025-02-02 | Outpatient (CLI) | payer BC ==
[2025-02-02 18:37] LABS: Basophils # (A) 0.07 X 10*3/uL (0.00-0.10); Basophils % (A) 1.3 %; Eosinophils # (A) 0.33 X 10*3/uL (0.04-0.35); Eosinophils % (A) 6.2 %; HCT 48.6 % (39.6-50.0); HGB 16.0 g/dL (13.0-17.0); Immature Grans, Automated 1.30 %; Lymphocytes # (A) 0.83 X 10*3/uL (0.90-5.00); Lymphocytes % (A) 15.6 %; MCH 27.2 pg (27.0-32.0); MCHC 32.9 g/dL (32.0-37.0); MCV 82.7 FL (80.0-97.0); Monocytes # (A) 0.43 X 10*3/uL (0.20-1.00); Monocytes % (A) 8.1 %; NRBC Per 100 WBC 0 X 10*3/uL (0.00-0.01); Neutrophils # (A) 3.60 X 10*3/uL (1.80-7.70); Neutrophils % (A) 67.5 %; Platelet Count 256 X 10*3/uL (140-440); RBC 5.88 X 10*6/uL (4.40-5.60); RDW 13.6 % (11.5-14.5); WBC 5.33 X 10*3/uL (4.50-10.00)
[2025-02-02 19:01] LABS: ALT 38 U/L (10-49); AST 27 U/L (14-35); Albumin 4.5 g/dL (3.8-4.9); Albumin/Globulin Ratio 2.65 Ratio (1.60-3.17); Alkaline Phosphatase 65 U/L (41-126); Anion Gap 11.60 mmol/L (4.00-12.00); BUN/Creat Ratio 12.67 Ratio (12.00-20.00); Blood Urea Nitrogen 11.4 mg/dL (9.0-27.0); Calcium 8.9 mg/dL (8.7-10.3); Carbon Dioxide 26.4 mmol/L (21.6-31.8); Chloride 104 mmol/L (96-109); Cholesterol 178.00 mg/dL (0.00-200.00); Globulin 1.7 g/dL (1.6-3.3); Glucose 96 mg/dL (70-110); HDL Cholesterol 57.40 mg/dL (40.00-60.00); LDL Cholesterol,Calculated 97.8 mg/dL (0.0-131.0); Potassium 4.5 mmol/L (3.5-5.5); Sodium 142 mmol/L (135-145); T4, Free (Free Thyroxine) 1.18 ng/dL (0.80-1.80); Total Protein 6.2 g/dL (6.2-8.2); Triglycerides 114.00 mg/dL (0.00-149.00); VLDL Calculation 22.80 mg/dL (5.00-40.00)
== END | disposition home or self-care (01) ==
LOC: LABWHC1 12:03
PROVIDERS: ATTEND Internal Medicine
DX: Z00.00 Encounter for general adult medical examination without abnormal findings (principal); E03.8 Other specified hypothyroidism; R76.8 Other specified abnormal immunological findings in serum
CPT/HCPCS: 36415; 80053; 80061; 83516; 84439; 84443; 85025